=== PATIENT | female | born 1940 | race Caucasian/White ===

== ENCOUNTER 2016-05-25 19:16 | Inpatient (IN) | payer MEDICARE ==
[~2016-05-25] VITALS: Ht 157.5 cm; Wt 62.7 kg
[2016-05-25 19:32] VITALS: BP 153/80; PULSE 81; RESP 20; O2SAT 95
--- NOTE | 2016-05-25 20:13 | DRSVH ---
PROCEDURE: X-RAY CHEST ONE VIEW, PORTABLE ([id number]) INDICATIONS: 76 year-old female with cough. TECHNIQUE: One view of the chest was acquired. COMPARISON: [facility], , CHEST 2VW, 02/11/2015, 11:14. [facility], , CHEST 2VW, 06/22/2014, 12:00. [facility], , CHEST 2VW, 11/05/2010, 11:12. FINDINGS: Surgical changes and devices: None. Lungs and pleura: No pleural effusions or pneumothorax. Lungs are clear. Mediastinum: Mediastinal contours appear normal. Central pulmonary arteries appear prominent in siz e. Heart size is normal. There is aortic atherosclerosis. Bones and chest wall: No suspicious bony lesions. Overlying soft tissues appear unremarkable. IMPRESSION: No acute cardiopulmonary disease. Prominent central pulmonary arteries would be consisten t with pulmonary arterial hypertension. Dictated by: Cruz Cool M.D. on 05/25/2016 at 20:11 Approved by: Cruz Cool M.D. on 05/25/2016 at 20:11
[2016-05-25 20:43] LABS: BASOPHILS % (AUTO) 0.6 % (0-3); EOSINOPHILS % (AUTO) 1.9 % (0-5); MONOCYTES % (AUTO) 9.7 % (4-12); Mean Corpuscular Hemoglobin 31.1 pg (27.0-35.0); Mean Corpuscular Volume 101.7 fL (81-100); NEUTROPHILS % (AUTO) 57.6 % (40-74); Platelet Count 231 bil/L (150-400)
[2016-05-25 21:37] LABS: TROPONIN T 0.01 ug/L (0.0-0.011)
--- NOTE | 2016-05-25 21:50 | ED.REPORT ---
HPI-URI / Cough / Cold Date of Service May 25, 2016 ED Provider: Thaddeus Khanna MD A 76 year old female with a history of COPD, smoking, hypercholesterolemia, and hypertension is brought to the ED via EMS due to decreased level of consciousness. Per pt's daughter, the pt has not been acting normally today. She has been making little sense when she speaks and is exceedingly fatigued. The pt has also not been drinking or urinating today. There is also concern about the pt's respiratory function, though this concern is not as acute. The daughter saw the pt tripoding when she visited today, though the pt claimed that this was to relieve back pain. The pt should be on inhalers but has not been taking them regularly. She is on 2 L of oxygen at home. However there is not a significant change in her respiratory baseline. Nursing Notes Stated Complaint: WEAKNESS AND COUGH Chief Complaint: Respiratory Complaints Nursing Notes Reviewed: Yes Allergies: Coded Allergies: No Known Allergies (Unverified , 05/25/16) General Time Seen by MD: 21:45 Chief Complaint Other (Changed LOC) Hx Obtained From: Daughter, EMS Arrived By: Ambulance, Walk-in Onset Occurred: 9 - 12 hours ago Symptom Duration: Since onset Recent Healthcare: Recent doctor visit, Recent hospitalization Similar Sx Previous: No Past Medical History Past Medical History COPD on 2lNC Hypercholesterolemia PFTs at [place] 10/2015 4.3 cm AAA, fairly stable Reports: COPD, Hypertension Past Surgical History Spinal fusion 20 years ago Knee surgery Smoking History Current Every Day Smoker (since age 20) Social History Alcohol Use: Denies alcohol use Drug Use: Denies drug use Ambulatory Status Independent Review of Systems Review of Systems Note: decreased urination and fluid intake Constitutional: Reports: Fatigue, Denies: Chills, Fever Respiratory: Reports: Shortness of breath GI: Denies: Abdominal pain, Nausea, Vomiting Skin: Denies Rash Neurologic: Reports: Confusion Complete sys rev & neg: except as marked. Physical Exam Initial Vital Signs Vital Signs (First) Date Time Temp Pulse Resp B/P Pulse Ox O2 Delivery O2 Flow Rate FiO2 05/25/16 19:32 37.1 81 20 153/80 95 Room Air Initial VS: Reviewed General/Constitutional: Awake somnolent but opens eyes responds with one word answers then goes back to sleep globally weak but moves all extremities ENT: Atraumatic, Airway patent, Mucous membranes moist Respiratory / Chest: Atraumatic, Breath sounds = bilat, No respiratory distress tachypneic but not dyspneic scattered wheezes and rhonchi throughout Head / Eyes: Atraumatic, Normocephalic, PERRL, EOMI Neck: Atraumatic, Supple, Full range of motion Cardiovascular: Heart rate NL, Regular rhythm, Heart sounds NL Abdomen: Atraumatic, Soft, Non-tender Skin: Atraumatic, Color NL, No rash, Warm, Dry Neurologic: Oriented X3, Speech NL, No motor deficits, No sensory deficits Back: Atraumatic, Full range of motion Upper Extremity / MS: Atraumatic, Full range of motion Lower Extremity / Pelvis / MS: Atraumatic, Full range of motion, No edema Psychiatric: Mood NL Interpretation & Diagnostics Lab Results Interpretation Result Diagram: 05/25/16203405/25/16 2100 Test 05/25/16 20:35 05/25/16 21:00 05/25/16 22:30 White Blood Count 6.7th/mm3 (3.8-10.1) Red Blood Count 4.08mil/mm3 (3.90-5.20) Hemoglobin 12.7g/dL (12.0-15.6) Hematocrit 41.5% (35.0-46.0) Mean Corpuscular Volume 101.7fL (81-100) Mean Corpuscular Hemoglobin 31.1pg (27.0-35.0) Mean Corpuscular Hemoglobin Concent 30.6% (32.0-37.0) Red Cell Distribution Width 14.1% (12.3-15.4) Platelet Count 231bil/L (150-400) Neutrophils (%) (Auto) 57.6% (40-74) Lymphocytes (%) (Auto) 30.1% (14-46) Monocytes (%) (Auto) 9.7% (4-12) Eosinophils (%) (Auto) 1.9% (0-5) Basophils (%) (Auto) 0.6% (0-3) Sodium Level 138mEq/L (134-144) Potassium Level 4.7mEq/L (3.5-5.2) Chloride Level 93mEq/L (97-108) Carbon Dioxide Level 36mmol/L (18-29) Blood Urea Nitrogen 13mg/dL (8-27) Creatinine 0.42mg/dL (0.57-1.00) Estimat Glomerular Filtration Rate 210mL/min (>59) Glucose Level 84mg/dL (60-99) Calcium Level 9.7mg/dL (8.5-10.1) Total Bilirubin 0.2mg/dL (0.0-1.2) Aspartate Amino Transf (AST/SGOT) 14U/L (0-50) Alanine Aminotransferase (ALT/SGPT) 8U/L (0-32) Alkaline Phosphatase 56U/L (25-165) Troponin T 0.010ug/L (0.0-0.011) Pro-B-Type Natriuretic Peptide 178.8pg/mL (0-738) Total Protein 7.0g/dL (6.4-8.4) Albumin 3.0g/dL (3.4-5.0) Hold Judge Top Tube Received (Received) Urine Color Yellow (YELLOW) Urine Appearance Clear (CLEAR,HAZY) Urine pH 6.0 (5.0-8.0) Urine Specific [place] 1.025 (1.003-1.035) Urine Protein Negativemg/dL (NEG,TRACE) Urine Glucose (UA) Negativemg/dL (NEGATIVE) Urine Ketones 15mg/dL (NEGATIVE) Urine Occult Blood Negative (NEGATIVE) Urine Nitrite Negative (NEGATIVE) Urine Bilirubin Negative (NEGATIVE) Urine Urobilinogen Normalmg/dL (NORMAL) Urine Leukocyte Esterase Negative (NEGATIVE) Urine RBC 0-2/hpf (0-2) Urine WBC 0-5/hpf (0-5) Urine Epithelial Cells Occasional/hpf (NONE-MOD) Urine Crystals None seen (NONE SEEN) Urine Bacteria None/hpf (NONE-FEW) Urine Hyaline Casts None/lpf (NONE) Urine Granular Casts None seen (NONE SEEN) Urine Waxy Casts None seen (NONE SEEN) Urine Red Blood Cell Casts None seen (NONE SEEN) Urine White Blood Cell Casts None seen (NONE SEEN) Urine Mucus None seen (None Seen) Urine Trichomonas None seen (NONE SEEN) Urine Yeast None (NONE SEEN) Urine Culture Reflexed Not indicated Lab Results Interpretation: CBC Normal CMP elevated CO2 Glucose normal ABG reveals severe hypercapnia, acute on chronic ECG Interpretation ECG Interpretation: normal sinus rhythm with a rate of 93 no abnormalities Time: 19:50 Interpreted by: ED physician X-Ray Chest Interpretation Chest Xray Interpretation: IMPRESSION: No acute cardiopulmonary disease. Prominent central pulmonary arteries would be consistent with pulmonary arterial hypertension. Dictated by: Cruz Cool M.D. on 05/25/2016 at 20:11 Approved by: Cruz Cool M.D. on 05/25/2016 at 20:11 Interpretation / Wet Read by: Interpret - Radiologist Re-Eval/Medical Decision Med Decision/Clinical Course This is a 76-year-old female chronic COPD continues to smoke and according to family is only marginally compliant with medications in the COPD regimen is brought with a chief complaint of altered mental status. Chart proximal but shortness of breath, they reports is a little bit more cough than baseline-they really think it is more that the patient seemed in appropriately drowsy, and more difficult to arouse at times reason that they brought her in. The patient is not on any sedating medicines, does not use drugs or drink alcohol according to family. There has been no trauma. No fevers. No prior history of similar symptoms. On exam she is mildly tachypneic, but not severely dyspneic, she has scattered wheezes and rhonchi throughout. She is satting mid 90s on oxygen just under 2 L that she says she is on normally. This was then turned down the titrated to a sat of 8099% given she is drowsy, she will wake up the stimulus, interactive or a few seconds and then go back-and I am very suspicious about hypercapnia. Blood gas confirmed CO2 of 80, and the patient was placed on BiPAP support with improvement. Family is clear that the patient would not wish to be intubated, and will but limited interventions at the BiPAP be desired. An x-ray demonstrated no colette infiltrate. Blood work revealed no leukocytosis. Flu swab was negative. Overt pneumonia is not clearly evident. He is also worried about a urinary tract infection, but UA is negative. Patient's received albuterol, Atrovent, steroids, magnesium. She is being admitted for continued management on BiPAP support. Given the absence of infiltrate, leukocytosis, fever, I am defering abx to hospitalist. Source of Hx: Old records Re-Evaluation/Progress : Time of Eval: 23:28 Patient Status: Condition improved Re-Evaluation/Progress Note: Pt rechecked, who is resting on BiPAP and doing slightly better. Pt's daughter is informed of lab results and need for admission. The daughter understands and agrees with the plan. All questions are addressed at this time. Consultation : Referral / Consult Name: Richelle Gupta MD Consulted With: Hospitalist Call Returned at: 23:04 Compotype Operator: Agrees with eval, Agrees with plan, Accepts admit Note: Spoke to Dr. Gupta, hospitalist, regarding pt's case. Dr. Gupta agrees with the evaluation and agrees to admit the pt. Counseled Regarding: Diagnosis, Lab results, Need for admission Discharge & Departure Impression: Primary Impression: Hypercapnic respiratory failure Chronicity: acute on chronic Qualified Code: J96.22 - Acute and chronic respiratory failure with hypercapnia Additional Impression: COPD with acute exacerbation Disposition: ADMITTED TO HOSPITAL Discharge Condition All VS Reviewed: Yes Condition: Stable Referrals: Felix Knott MD (PCP) Crit Care Except Billable Proc Time Spent: 30-74 minutes Services Performed: Patient management by me, Time spent at bedside, Reviewing test results, Reviewing imaging, Discussing patient care Scribe Attestation Portions of this note were transcribed by Mahin Mcallister. I, Dr. Khanna personally performed the history, physical exam and medical decision-making; I reviewed and confirmed the accuracy of the information in the transcribed note. Signed by: Linda Marks, 05/25/2016, 23:35 copies to: Felix Knott MD, Matthew F MD May 25, 2016 21:50 MAHIN MCALLISTER May 25, 2016 22:27
--- NOTE | 2016-05-25 22:43 | ABG ---
DateTimeAnalyzed 22:36:00 -_ pH ____7.324 - 7.350 7.450 pCO2 ___78.5__ -mmHg 35.0 45.0 pO2 ___57.9__ -mmHg 69.0 116 HCO3- ___39.6__ -mmol/L 22.0 26.0 ABE ___10.9__ -mmol/L -2.0 2.0 tHb ___12.2__ -g/dL O2Hb ___85.1__ -% COHb ____4.0__ -% MetHb ____0.9__ -% sO2 ___89.5__ -% FIO2 ___28.0__ -% Drawn By MM - Date/Time Notified____ 22:42:00 -_ Liter_Flow ____2.0__ -L/min Oxygen Device 1 __CANNULA - Notified By MM - Notified Whom DR BOB - B 762 -mmHg tO2 ___14.6__ -Vol% Pablo test _Positive -
[2016-05-25 23:07] LABS: APPEARANCE,URINE CLEAR (CLEAR,HAZY); COLOR,URINE YELLOW (YELLOW); OCCULT BLOOD,URINE NEGATIVE (NEGATIVE); UROBILINOGEN,URINE NORMAL (NORMAL)
[2016-05-25] MEDS ORDERED: 0.9% Sodium Chloride 1,000 ML IV ONE ×2 (23:10→23:15)
[2016-05-25] MEDS ORDERED: MethylprednisoLONE Sodium Succinate 62.5 mg/mL 2 mL Inj IVPUSH ONE (23:30)
[2016-05-25] MEDS ORDERED: Albuterol 2.5 mg/3 mL Inhalation Solution NEB ONE (23:30)
[2016-05-25] MEDS ORDERED: Ipratropium 0.02% 0.5 mg/2.5 mL Inhalation Solution NEB ONE (23:30)
[2016-05-25] MEDS ORDERED: Magnesium Sulf 2 Gm/50mL Water 2 GM in IV Premix 1 EACH IV ONE (23:30)
[2016-05-25] MEDS ORDERED: Ondansetron 2 mg/mL 2 mL Inj IVPUSH PRN (23:40)
[2016-05-25] MEDS ORDERED: Alum-Mag Hydrox-Simeth 30 mL Suspension PO PRN (23:40)
[2016-05-26] VITALS (13 sets, daily range): BP systolic 104–143; BP diastolic 63–87; PULSE 75–106; RESP 20–23; O2SAT 88–94
--- NOTE | 2016-05-26 01:41 | NUR ---
Admit To floor from ED at 0050 accompanied by son. Unable to answer questions for admit, so son helped with those, but was able to state her height as 5'2, and her name. Shakes head "no" when asked about pain. Skin very dry and flaky. LE's with some pitting edema. RT here to give neb and measurement superintendent bipap. Sats 88% on bipap. Goal is 88-92% per RT. Plan is to take her to CT as soon as they are ready. Per son, declines flu shot. Personal alarm on for safety when family not in room.
--- NOTE | 2016-05-26 02:37 | ABG ---
DateTimeAnalyzed 02:33:00 -_ pH ____7.231 - 7.350 7.450 pCO2 ___87.8__ -mmHg 35.0 45.0 pO2 ___89.2__ -mmHg 69.0 116 HCO3- ___35.6__ -mmol/L 22.0 26.0 ABE ____5.6__ -mmol/L -2.0 2.0 tHb ___12.0__ -g/dL O2Hb ___91.8__ -% COHb ____3.5__ -% MetHb ____0.9__ -% sO2 ___96.0__ -% FIO2 ___50.0__ -% PEEP ____6.0__ -cmH2O Vt __250.0__ -L Drawn By af - Date/Time Notified____ 02:37:00 -_ Spontaneous_RR ___18.0__ -b/min Oxygen Device 1 ____BIPAP - Notified By af - Notified Whom ___amy rn - B 764 -mmHg tO2 ___15.6__ -Vol% Pablo test _Positive -
--- NOTE | 2016-05-26 02:46 | NUR ---
CT/respiratory status Unable to take patient to CT as she started to desat on bipap. RT in to adjust settings. Repositioned to help with hypoventilation. Repeat ABG obtained. Results called to . No further orders at this time. RT to repeat ABG at 0500.
[2016-05-26] MEDS ORDERED: RANI150C4 PO (02:51)
[2016-05-26] MEDS ORDERED: LISI10TA PO (02:51)
[2016-05-26] MEDS ORDERED: ATOR20TA PO (02:51)
[2016-05-26] MEDS: 0.9% Sodium Chloride 1,000 ML IV SCH ×3 (03:07→23:09)
--- NOTE | 2016-05-26 03:11 | PCM.HPMED ---
Subjective Date of Service May 26, 2016 Primary Provider: Admitting Physician: Richelle Gupta MD Primary Care Physician: Felix Knott MD Attending Physician: Richelle Gupta MD Admit Status: From the Emergency Department Chief Complaint: Altered mental status History of Present Illness: Mrs. Ureña is a 76 year-old female with a history of COPD who continues to smoke (since she was a teenager), hypercholesterolemia, and hypertension who was brought to the ED via EMS due to altered level of consciousness. Per pt's son (that she lives with) she got up at 8:30 a.m. and got a cup of coffee that he made for her then she almost immediately feel asleep in a chair. At about 1: 00 p.m., ([id number]?) checked on her and she was in the same chair, tripoding (leaning forward) and sleeping. It appears that she had not gotten up from her chair, not urinated, not had a cigarette (which is very unusual for her ) since she was last seen at 8:30 a.m. Vitals were stable including BP of 113/ 72. When asked if she was okay, she nodded yes then fell back asleep. At one point she said people were in the room who obviously were not there. She had no facial droop and her celery tier was strong and she could lift her head up. At one point she was "babbling" -- they could understand her words but they made no sense. Called EMS and patient walked from chair to gurney without protest (also unusual). Normally, patient is not very compliant with her inhalers. She has not been ill recently and no fevers, trauma, prior similar symptoms. She uses no opiates and uses oxygen at home at 2 liters. Daughter states that she seems to be breathing at baseline currently. Per son, she has an aortic aneurysm as well that she is supposed to follow up on every 6 months but she has continually canceled appointment and he is worried that has something to do with her presentation. In the ED, she was mildly tachypneic, and had scattered wheezes and rhonchi throughout. She was satting mid 90s on 2 L O2. She was drowsy, will wake with stimulus, interactive or a few seconds and then go back to sleep. Blood gas confirmed CO2 of 80, and the patient was placed on BiPAP with mental improvement per family. Family is clear that the patient would not wish to be intubated, and will but limited interventions at the BiPAP be desired. Chest x-ray: no colette infiltrate. Labs: no leukocytosis. Flu swab was negative. Overt pneumonia not clearly evident. UA was negative. Blood glucose normal. Patient received albuterol, Atrovent, steroids, magnesium in the ED. She was admitted for continued management on BiPAP support. Review of Systems: Unable to obtain given patient's mental status. Allergies Coded Allergies: No Known Allergies (Unverified , 05/25/16) Home Medications Atorvastatin 20mg QHS lisinopril 10mg daily ranitidine 150mg PO BID Unknown inhalers Home oxygen PMH COPD on 2lNC Hypercholesterolemia PFTs at [place] 10/2015 4.3 cm AAA, fairly stable Reports: COPD, Hypertension Surgical History Spinal fusion 20 years ago Knee surgery Family History Unknown. Patient unable to speak because of mental status. Social History Hx Alcohol Use: No Hx Substance Use: No Smoking Status: Current Every Day Smoker (since age 20) Living Arrangement: with Family (with son) Exam Vital Signs Vital Sign - Last Date Time Temp Pulse Resp B/P Pulse Ox O2 Delivery O2 Flow Rate FiO2 05/26/16 01:10 84 21 91 30 05/26/16 00:50 36.6 122/72 BiPAP Intake and Output 05/25/16 05/25/16 05/26/16 Cumulative From/Thru 15:00 23:00 07:00 05/25/16 19:32 - 05/26/16 00:50 Intake Total 1050 ml 1050 ml Balance 1050 ml 1050 ml Intake IV Total 1050 ml 1050 ml Exam General/Constitutional: somnolent but opens eyes when stimulated. responds with one word answers then goes back to sleep ENT: Atraumatic, Airway patent, Mucous membranes moist Respiratory / Chest: Atraumatic, Breath sounds = bilat, scattered wheezes and rhonchi throughout, patient on bipap when examined Head / Eyes: Atraumatic, Normocephalic, sclera anicteric Neck: Supple Cardiovascular: Difficult to assess with bipap and lung sounds. However, RRR and no murmurs appreciated Abdomen: Atraumatic, Soft, Non-tender Skin: Atraumatic, Color NL, No rash, Warm, Dry Neurologic: Upon admission, patient was too sleepy to follow directions Lab and Diagnostics Labs Normal glucose Result Diagram: 05/25/16203405/25/16 2100 X-Rays, CTs and MRIs Date of Service: 05/25/161941 PROCEDURE: X-RAY CHEST ONE VIEW, PORTABLE INDICATIONS: 76 year-old female with cough. TECHNIQUE: One view of the chest was acquired. COMPARISON: [facility], , CHEST 2VW, 02/11/2015, 11:14. [facility], , CHEST 2VW, 06/22/2014, 12:00. [facility], , CHEST 2VW, 11/05/2010, 11:12. FINDINGS: Surgical changes and devices: None. Lungs and pleura: No pleural effusions or pneumothorax. Lungs are clear. Mediastinum: Mediastinal contours appear normal. Central pulmonary arteries appear prominent in size. Heart size is normal. There is aortic atherosclerosis. Bones and chest wall: No suspicious bony lesions. Overlying soft tissues appear unremarkable. IMPRESSION: No acute cardiopulmonary disease. Prominent central pulmonary arteries would be consistent with pulmonary arterial hypertension. Dictated by: Cruz Cool M.D. on 05/25/2016 at 20:11 . 12-lead ECG ECG Interpretation: normal sinus rhythm with a rate of 93 no abnormalities Time: 19:50 Interpreted by: ED physician Reviewed, Resident Olga Additional Diagnostics: SECOND ABG - DateTimeAnalyzed 02:33:00 -_ pH ____7.231 - 7.350 7.450 pCO2 ___87.8__ -mmHg 35.0 45.0 pO2 ___89.2__ -mmHg 69.0 116 HCO3- ___35.6__ -mmol/L 22.0 26.0 ABE ____5.6__ -mmol/L -2.0 2.0 tHb ___12.0__ -g/dL O2Hb ___91.8__ -% COHb ____3.5__ -% MetHb ____0.9__ -% sO2 ___96.0__ -% FIO2 ___50.0__ -% PEEP ____6.0__ -cmH2O Vt __250.0__ -L Drawn By af - Date/Time Notified____ 0 2:37:00 -_ Spontaneous_RR ___18.0__ -b/min Oxygen Device 1 ____BIPAP - Notified By af - Notified Whom ___amy rn - B 764 -mmHg tO2 ___15.6__ -Vol% Pablo test _Positive - FIRST ABG DateTimeAnalyzed 22:36:00 -_ pH ____7.324 - 7.350 7.450 pCO2 ___78.5__ -mmHg 35.0 45.0 pO2 ___57.9__ -mmHg 69.0 116 HCO3- ___39.6__ -mmol/L 22.0 26.0 ABE ___10.9__ -mmol/L -2.0 2.0 tHb ___12.2__ -g/dL O2Hb ___85.1__ -% COHb ____4.0__ -% MetHb ____0.9__ -% sO2 ___89.5__ -% FIO2 ___28.0__ -% Drawn By MM - Date/Time Notified____ 22:42:00 -_ Liter_Flow ____2.0__ -L/min Oxygen Device 1 __CANNULA - Notified By MM - Notified Whom DR BOB - B 762 -mmHg tO2 ___14.6__ -Vol% Pablo test _Positive - Assessment & Plan Mrs. Ureña is a 76 year-old female with a history of COPD who continues to smoke (since she was a teenager), hypercholesterolemia, and hypertension who was brought to the ED via EMS due to altered level of consciousness. 1. Altered mental status, present on admission, acute - ABG showed hypercapnia of 80. Repeat at 02:30 showed hypercapnia of 89. - Ordered CT per stroke protocol, but patient not stable enough to be off of CPAP at this time. Unlikely stroke, son said celery tier strength was fine and she was able to walk from chair to gurney. - Currently patient on bipap with frequent adjustment - Checking B12, folate, RPR, urine tox screen, blood alcohol, ammonia - Giving flumazenil and naloxone because tox screens pending (although do not suspect substances) - Patient is DNI - DuoNebs ordered - Solu Medrol given in ED, will continue 2. Hypercapnia, present on admission, acute - See #1 above 3. COPD, present on admission, acute on chronic - Patient uses 2 liters of oxygen at home - Now requiring bipap - See #1 #2 above 3. Hypertension, present on admission, chronic - Currently controlled - Will hold for now - consider permissive hypertension for possible stroke 4. Dyslipidemia, present on admission, chronic - Hold statin for now. 5. AAA, present on admission, chronic - Assume stable 6. [id number]-history, present on admission, ongoing - Nicotine patch - Acetaminophen as needed for mild pain/fever/headache - Bowel regimen as needed - Antiemetic as needed Patient admitted under inpatient status with expected length of stay > 2 midnights for severity of present symptoms, complexities of treatment plan and risk for adverse events CODE STATUS: DNR/DNI confirmed with son and daughter VTE Prophylaxis: Sub-Q Heparin (Unfractionated) Resuscitation Status: DNR/DNI:Do Not Resuscitate/Intubate Attending Statement Pt seen and examined by myself and agree with above plan. Flori Espinoza DO May 26, 2016 03:11 Richelle Gupta MD May 29, 2016 18:57
[2016-05-26] MEDS ORDERED: Flumazenil 0.1 mg/mL 5 mL Inj IV ONE (03:25)
--- NOTE | 2016-05-26 04:01 | NUR ---
Meds Narcan and Romazicon given without any noticeable effect.
[2016-05-26] MEDS: Albuterol-Ipratropium 3 mL Inhalation Solution NEB SCH ×4 (04:23→21:00)
--- NOTE | 2016-05-26 04:36 | ABG ---
DateTimeAnalyzed 04:31:00 -_ pH ____7.272 - 7.350 7.450 pCO2 ___76.2__ -mmHg 35.0 45.0 pO2 ___60.9__ -mmHg 69.0 116 HCO3- ___34.0__ -mmol/L 22.0 26.0 ABE ____5.4__ -mmol/L -2.0 2.0 tHb ___11.7__ -g/dL O2Hb ___85.7__ -% COHb ____3.3__ -% MetHb ____1.0__ -% sO2 ___89.5__ -% FIO2 ___40.0__ -% CPAP ___25.0__ -cmH2O PEEP ___10.0__ -cmH2O Set_RR ___20.0__ -b/min Drawn By af - Date/Time Notified____ 04:35:00 -_ Spontaneous_RR ___22.0__ -b/min Oxygen Device 1 ____BIPAP - Notified By AF - Notified Whom ___Amy RN - B 764 -mmHg tO2 ___14.1__ -Vol% Pablo test _Positive -
[2016-05-26] MEDS ORDERED: MethylprednisoLONE Sodium Succinate 40 mg/mL Inj IVPUSH SCH ×2 (08:30)
[2016-05-26] MEDS: Heparin 5,000 Unit/mL Inj SUBQ SCH ×2 (09:07→16:19)
--- NOTE | 2016-05-26 10:09 | DRSVH ---
PROCEDURE: CT BRAIN WITHOUT CONTRAST ([id number]) INDICATIONS: altered mental status TECHNIQUE: Noncontrast 4.5 mm thick angled axial sections acquired from the foramen magnum to the vertex, with c oronal reformats. COMPARISON: None. FINDINGS: Image quality: Excellent. CSF spaces: Basal cisterns are patent. No extra-axial fluid collections. The ventricles are symmet marielos in size and shape. Brain: No intracranial bleeds or masses. There is cerebral volume loss for age, with resultant vent ricular and sulcal prominence. There are periventricular and deep white matter chronic small vessel ischemic changes. There is intracranial internal carotid artery atherosclerosis. Skull and face: Calvarium and visualized facial bones appear intact, without suspicious lesions. Sinuses: Visualized sinuses and mastoids are clear. IMPRESSION: 1. No acute intracranial findings. 2. Mild findings likely associated with microvascular ischemic changes. Dictated by: Xiomy Strickland M.D. on 05/26/2016 at 10:07 Approved by: Xiomy Strickland M.D. on 05/26/2016 at 10:07
[2016-05-26] MEDS ORDERED: predniSONE 20 mg Tablet PO ONE (12:00)
[2016-05-26] MEDS ORDERED: Albuterol 2.5 mg/3 mL Inhalation Solution NEB PRN (12:00)
--- NOTE | 2016-05-26 14:45 | NUR ---
Social Work Note: Initial Assessment Data& Assessment: EMR reviewed. SW met with pt and pt son at bedside to discuss discharge planning, SW role explained. Shanel Ureña is a 76 year old female admitted on 05/25/2016 for hypercapnic respiratory failure. Pt has Medicare and AARP supplement. Pt lives in [place] with her son who also helps with caregiving. Pt is independent with all ADL's except she does receive assistance with food prep, chores and medications. Pt has a wheelchair, can and 4WW at home but does not use them. Pt son transports her to appointments. Pt continues to see Felix Knott MD for primary care. Pt denies any LTC insurance or VA benefits. Pt denies any HH or SNF hx. Pt and pt family provided with DPOA paperwork. Pt and pt family deny any needs at this time. SW to continue to follow should needs arise. Plan: Anticipated discharge home via POV when medically ready. SW to continue to follow for MD and PT recommendations. Pt and pt family deny any needs at this time. SW to continue to follow should needs arise. LACEY Pena Addendum: 05/26/16 at 1507 by AGUSTO KLEIN Amended: Links added.
--- NOTE | 2016-05-26 16:10 | NUR ---
Respiratory/Mentation Patients blood gases improved since last night. BiPap removed and patient maintaing SPO2 in low 90s on 4L NC. No s/sx of respiratory distress. Patient A&O x3 and VSS. Patient resting in bed with family at bedside and call light within reach.
--- NOTE | 2016-05-26 16:15 | NUR ---
Evaluation completed. Please go to "Notes" then click on "Assessments and Notes" (bottom left corner of screen). Then select appropriate discipline tab on top of screen.
--- NOTE | 2016-05-26 17:00 | DRSVH ---
[facility] [address] [place] [address] Echocardiogram Report Name: CHANTAL LEDESMA JStudy Date: 05/26/2016 Height: 62 in Hospital Exam Location: [facility] Weight: 131 lb Gender: Female BSA: 1.6 m2 : 1940 Age: 76 yrs BP: 111/65 mmHg Reason For Study: COPD Ordering Physician: Performed By: Janet Kerr Referring Physician: Dr. Felix Knott Interpretation Summary The left ventricle is normal in size. The ejection fraction is estimated to be 65-70%. The right ventricle is normal in size and function. There is no hemodynamically significant valvular aortic stenosis. The ascending aorta is mildly enlarged. The IVC is of normal diameter and collapses less than 50% with a sniff. This suggests a right atrial pressure of 8 mm Hg. Procedure: A two-dimensional transthoracic echocardiogram with color flow and Doppler was performed. The study quality was technically adequate. There is no prior echocardiogram noted for this patient. The patient was in sinus tachycardia with heart rates between 98-108 bpm during the exam. Left Ventricle: The left ventricle is normal in size. Proximal septal thickening is noted. There is no echo evidence for significant left ventricular outflow tract obstruction. The ejection fraction is estimated to be 65-70%. There are no focal wall motion abnormalities. Spectral Doppler of the mitral valve is reversed, with an E/A wave ratio < 1.0. Right Ventricle: The right ventricle is normal in size and function. Atria: The left atrial size is normal. The right atrium is mildly dilated. The interatrial septum is intact with no evidence for an atrial septal defect. Mitral Valve: There is mild mitral annular calcification. The mitral valve leaflets are slightly calcified. There is trace mitral regurgitation. Aortic Valve: The aortic valve is trileaflet. There is discrete nodular thickening of the left coronary cusp. Leaflet mobility is mildly reduced. The aortic valve is mildly calcified. There is no hemodynamically significant valvular aortic stenosis. There is trace aortic regurgitation. Tricuspid Valve: The tricuspid valve is normal. Pulmonary artery pressures cannot be estimated because of the lack of a measurable TR jet velocity. There is trace tricuspid regurgitation. Pulmonic Valve: The pulmonic valve is not well visualized. There is trace pulmonic regurgitation. Great Vessels: The aortic root is normal size. The ascending aorta is mildly enlarged. The aortic arch could not be visualized. The pulmonary is not well visualized. The IVC is of normal diameter and collapses less than 50% with a sniff. This suggests a right atrial pressure of 8 mm Hg. Pericardium/ Pleura There is no pericardial effusion. There is no pleural effusion. MMode/2D Measurements & Calculations LVIDd: 4.2 cm RA long axis LVOT diam LVIDs: 2.7 cm LA A2 area: 15.4 cm FS: 36.7 % LA A4 area: 19.1 cm RA area AoV Opening EPSS: 0.19 cm LA length (vol): 5.1 cm IVSd: 0.93 cm LA vol: 49.0 ml : 21.1 cm Ao root diam LVPWd: 0.81 cm LA vol index RA vol : 65.2 ml asc Aorta RA Diam: 3.8 cm IVC diam: 2.1 cm : 40.9 mm2 LV belcher. diameter/BSA LV sys. diameter/BSA TAPSE: 2.6 cm (cm/m^2): 2.7 (cm/m^2): 1.7 Doppler Measurements & Calculations Ao V2 max MV E max esvin MV E/A: 0.86 PA V2 max : 179.4 cm/sec : 82.0 cm/sec Med Peak E' Esvin : 132.2 cm/sec Ao max P.9 mmHg MV A max esvin PA mean PG Ao mean P.3 mmHg : 95.2 cm/sec E/E' med: 6.7 : 3.3 mmHg LVOT Max Esvin Lat Peak E' Esvin : 131.2 cm/sec DIANDRA(I,D): 2.2 cm E/E' lat: 6.5 sev ratio: 0.58 MV A dur: 0.12 sec MV dec time: 0.13 sec Ao V2 mean LV V1 max PG PA V2 mean : 128.5 cm/sec : 83.7 cm/sec Ao V2 VTI: 38.0 cmLV V1 VTI: 22.2 cm PA pr(Accel) : 59.0 mmHg DIANDRA(V,D): 2.8 cm2 DIANDRA indexed to BSA (cm^2/m^2): 1.4 Reading Physician:LIZETTE
--- NOTE | 2016-05-26 18:48 | PCM.PNMED ---
Subjective Date of Service May 26, 2016 Subjective Shanel Ureña is a 76 year-old female with a history of COPD on 2 liters of home oxygen, hypertension, hyperlipidemia, and 4.3cm AAA reportedly stable who presented to the ED via EMS for altered level of consciousness. Admitted for acute on chronic respiratory failure and possible COPD exacerbation. Admitted to PCU overnight, received duoneb and started on bipap with goal sats of 88-92%. Today, patient's mentation improved but per her daughter not at baseline. Patient appears lethargic but is easily aroused and communicating appropriately. She denies chest pain, fever, chills, congestion, worsening cough or known sick contacts. She has never been intubated or hospitalized for her COPD and daughter (a nurse at [employer]) confirms patient is DNR/DNI. Exam Vital Signs Vital Sign - Last Date Time Temp Pulse Resp B/P Pulse Ox O2 Delivery O2 Flow Rate FiO2 05/26/16 10:11 Supplement Oxygen CPAP/BIPAP 05/26/16 09:53 103 22 91 3.00 05/26/16 07:28 36.5 111/65 40 Intake and Output 05/25/16 05/25/16 05/26/16 Cumulative From/Thru 15:00 23:00 07:00 05/25/16 19:32 - 05/26/16 05:49 Intake Total 3335 ml 3335 ml Output Total 600 ml 600 ml Balance 2735 ml 2735 ml Intake IV Total 3335 ml 3335 ml Output Urine Total 600 ml 600 ml Exam General: Chronically ill-appearing, elderly female in mild respiratory distress , bipap mask in place. Lethargic but arouses easily and is appropriately interactive HEENT: Normocephalic, atraumatic. External ears without defect. PERRLA, anicteric sclerae, moist conjunctivae, and no lid lag. Mucosa moist. Neck: Supple, non-tender, no lymphadenopathy or thyromegaly. +JVD. Cardiovascular: Regular rate and rhythm with no murmurs, rubs, or gallops appreciated Pulmonary: Symmetric chest rise with equal air entry bilaterally, lungs diffusely coarse with expiratory wheezing and rhonchi throughout. No use of accessory muscles. Abdomen: Bowel tones present. Soft, nontender, nondistended. No hepatosplenomegaly or masses appreciated. Extremities: Trace lower extremity edema, no cyanosis or lymphadenopathy appreciated. Clubbing of fingers bilaterally. Skin: Normal temperature, decreased turgor; no rash, ulcers, or subcutaneous nodules appreciated. Neurological: Cranial nerves grossly intact. No focal neurological deficit. No known gait impairment. Psychiatric: Normal mood and affect. Alert and oriented to person, place, and time IVs and Medications Medications Reviewed: Medications were reviewed in detail Lab and Diagnostics Procalcitonin < 0.05, Thyroid Stimulating Hormone (TSH) 1.460, Salicylates Level < 3.0, Alcohol, Quantitative < 10 Urine Opiates Screen Negative, Urine Methadone Screen Negative, Urine Barbiturates Screen Negative, Urine Amphetamines Screen Negative, Urine Benzodiazepines Screen Negative, Urine Cocaine Metabolite Screen Negative, Urine Cannabinoids Screen Negative Ammonia 38 Result Diagram: 05/25/16203405/25/16 2100 X-Rays, CTs and MRIs X-RAY CHEST ONE VIEW, PORTABLE (05/25/16) IMPRESSION: No acute cardiopulmonary disease. Prominent central pulmonary arteries would be consistent with pulmonary arterial hypertension. Dictated by: Cruz Cool M.D. on 05/25/2016 at 20:11 CT BRAIN WITHOUT CONTRAST (05/26/16) IMPRESSION: 1. No acute intracranial findings. 2. Mild findings likely associated with microvascular ischemic changes. Dictated and approved by: Xiomy Strickland M.D. on 05/26/2016 at 10:07 12-lead ECG ECG Interpretation: normal sinus rhythm with a rate of 93 no abnormalities Time: 19:50 Interpreted by: ED physician Reviewed, Resident Olga Additional Diagnostics SECOND ABG - DateTimeAnalyzed 02:33:00 -_ pH ____7.231 - 7.350 7.450 pCO2 ___87.8__ -mmHg 35.0 45.0 pO2 ___89.2__ -mmHg 69.0 116 HCO3- ___35.6__ -mmol/L 22.0 26.0 ABE ____5.6__ -mmol/L -2.0 2.0 tHb ___12.0__ -g/dL O2Hb ___91.8__ -% COHb ____3.5__ -% MetHb ____0.9__ -% sO2 ___96.0__ -% FIO2 ___50.0__ -% PEEP ____6.0__ -cmH2O Vt __250.0__ -L Drawn By af - Date/Time Notified____ 0 2:37:00 -_ Spontaneous_RR ___18.0__ -b/min Oxygen Device 1 ____BIPAP - Notified By af - Notified Whom ___amy rn - B 764 -mmHg tO2 ___15.6__ -Vol% Pablo test _Positive - FIRST ABG DateTimeAnalyzed 22:36:00 -_ pH ____7.324 - 7.350 7.450 pCO2 ___78.5__ -mmHg 35.0 45.0 pO2 ___57.9__ -mmHg 69.0 116 HCO3- ___39.6__ -mmol/L 22.0 26.0 ABE ___10.9__ -mmol/L -2.0 2.0 tHb ___12.2__ -g/dL O2Hb ___85.1__ -% COHb ____4.0__ -% MetHb ____0.9__ -% sO2 ___89.5__ -% FIO2 ___28.0__ -% Drawn By MM - Date/Time Notified____ 22:42:00 -_ Liter_Flow ____2.0__ -L/min Oxygen Device 1 __CANNULA - Notified By MM - Notified Whom DR BOB - B 762 -mmHg tO2 ___14.6__ -Vol% Pablo test _Positive - Assessment & Plan 76 year-old female with a history of COPD who continues to smoke (since she was a teenager), hypercholesterolemia, and hypertension who was brought to the ED via EMS due to altered level of consciousness. Hospital day #1. 1. Acute on chronic hypercapnic respiratory failure, present on admission. Active. -Pt is a current and long time smoker, oxygen dependent and questionable adherence to home inhalers. -Likely multifactorial, secondary to over oxygenation in setting of COPD, acute exacerbation of COPD or underlying occult respiratory infection. -Reportedly maintaining high oxygen sats at home, per pt's daughter who is a nurse. Pt lives with her son and been keeping sats mid-upper nineties. -Hypercapnia on ABG, pCO2 88 on bipap. FiO2 of 50%. -Continue supplemental oxygen, titrate as tolerated with goal SpO2 88-92%. -Trial off bipap today with ABG within one hour if tolerated. -Influenza rapid screen negative, will check respiratory viral PCR, sputum culture and trend procalcitonin. -Duonebs qid, while awake and Albuterol q2h prn. 2. Possible acute exacerbation of COPD, present on admission. Active. -Decline in mental status for several weeks to months. Pt notably somnolent in last few days prior to admission. -Oxygen dependent, 2L home O2. Unknown home inhalers, poor compliance per the patient's daughter. -Pt oxygen dependent with PFTs in October at [facility]. -Request outside records and PFTs. -Continue supplemental oxygen and bronchodilators, as above. -Start oral prednisone 40mg, once daily. 3. Altered mental status, unknown chronicity. present on admission. Active -Likely secondary to #1. Pt may have underlying mild dementia. -Brain CT showed no acute intracranial findings and findings consistent with microvascular ischemic changes. -B12 and folate, pending -UA no signs of infection, ammonia wnl -Urine tox screen and blood alcohol negative -Received Solu Medrol in the ED -Continue supplemental oxygen, bronchodilators and prednisone as above. 4. Hypertension, chronic. present on admission. Active. -Home medication held initially for permissive hypertension for possible stroke. -CT brain, as above. -Resume home medication, Lisinopril 10mg daily 5. Hyperlipidemia, chronic. present on admission. Active. -Resume home statin, Atorvastatin 20mg QHS 6. AAA, present on admission, chronic. Assume stable. -Request records from [facility] 7. Tobacco use disorder, present on admission. Active. -Pt reports 43-[id number]-history, continues to smoke -Nicotine patch. - Acetaminophen as needed for mild pain/fever/headache - Bowel regimen as needed - Antiemetic as needed Anticipated discharge home with family in 2-3 days pending resolution of respiratory failure. Pain Evaluation: Adequate Pain Control VTE Prophylaxis: Sub-Q Heparin (Unfractionated) Resuscitation Status: DNR/DNI:Do Not Resuscitate/Intubate Attending Statement The patient was seen and examined together with Dr. Jerry on 05-26-16 and I agree with the history, exam and plan as outlined in the note above. Martha Alexander DO May 26, 2016 10:47 Simone Burk MD May 27, 2016 15:04
[2016-05-27] VITALS (12 sets, daily range): BP systolic 107–132; BP diastolic 68–79; PULSE 76–92; RESP 16–24; O2SAT 88–93
[2016-05-27] MEDS: Heparin 5,000 Unit/mL Inj SUBQ SCH ×4 (00:09→23:26)
[2016-05-27 03:45] LABS: BASOPHILS % (AUTO) 0 % (0-3); EOSINOPHILS % (AUTO) 0 % (0-5); MONOCYTES % (AUTO) 10.6 % (4-12); Mean Corpuscular Hemoglobin 31.5 pg (27.0-35.0); Mean Corpuscular Volume 99.4 fL (81-100); NEUTROPHILS % (AUTO) 79.9 % (40-74); Platelet Count 204 bil/L (150-400)
--- NOTE | 2016-05-27 04:36 | NUR ---
Mentation/O2 Pt A&Ox3 throughout night, using call light appropriately, denied any pain. VSS O2 titrated down to 1-1.5L NC in order to maintain sats between 88-92%. Pt denied any SOB, had occasional congested sounding cough but unable to cough it out.
[2016-05-27 07:12] LABS: Vitamin B12 471 pg/mL (211-946)
[2016-05-27] MEDS: 0.9% Sodium Chloride 1,000 ML IV SCH ×2 (07:52→17:39)
[2016-05-27] MEDS: Albuterol-Ipratropium 3 mL Inhalation Solution NEB SCH ×4 (08:30→21:05)
--- NOTE | 2016-05-27 15:37 | PCM.PNMED ---
Subjective Date of Service May 27, 2016 Subjective Shanel Ureña is a 76 year-old female with a history of COPD on 2 liters of home oxygen, hypertension, hyperlipidemia, and 4.3cm AAA reportedly stable who presented to the ED via EMS for altered level of consciousness. Admitted for acute on chronic respiratory failure and possible COPD exacerbation. NO acute events overnight. Per nursing, patient alert and oriented and oxygen titrated down to 1-1.5liters nasal cannula in order to maintain sats between 88- 92%. Today, patient is resting comfortably and found visiting with family. She states that she is feeling much better and is ready to go home. She denies chest pain, fever, chills, headache, dizziness, nausea, vomiting, diarrhea or constipation. Exam Vital Signs Vital Sign - Last Date Time Temp Pulse Resp B/P Pulse Ox O2 Delivery O2 Flow Rate FiO2 05/27/16 04:19 Supplement Oxygen 05/27/16 04:09 36.6 79 24 132/79 88 1.00 05/26/16 07:28 40 Intake and Output 05/26/16 05/26/16 05/27/16 Cumulative From/Thru 15:00 23:00 07:00 05/25/16 19:32 - 05/27/16 06:39 Intake Total 1800 ml 1261 ml 6396 ml Output Total 450 ml 1050 ml Balance 1350 ml 1261 ml 5346 ml Intake Oral 620 ml 620 ml IV Total 1180 ml 1261 ml 5776 ml Output Urine Total 450 ml 1050 ml Exam General: Chronically ill-appearing, elderly female in no acute distress, nasal cannula in place. Alert and oriented. Appropriately interactive. HEENT: Normocephalic, atraumatic. External ears without defect. PERRLA, anicteric sclerae, Mucosa moist. Neck: Supple, non-tender, no lymphadenopathy or thyromegaly. +JVD. Cardiovascular: Regular rate and rhythm with no murmurs, rubs, or gallops appreciated Pulmonary: Symmetric chest rise with equal air entry bilaterally, lungs coarse with expiratory wheezing. No use of accessory muscles. Abdomen: Bowel tones present. Soft, nontender, nondistended. No hepatosplenomegaly or masses appreciated. Extremities: Trace lower extremity edema, no cyanosis or lymphadenopathy appreciated. Clubbing of fingers bilaterally. Skin: Normal temperature, decreased turgor; no rash, ulcers, or subcutaneous nodules appreciated. Neurological: Cranial nerves grossly intact. No focal neurological deficit. No known gait impairment. Psychiatric: Normal mood and affect. Alert and oriented to person, place, and time IVs and Medications Medications Reviewed: Medications were reviewed in detail Lab and Diagnostics White Blood Count 9.8, Red Blood Count 3.37, Hemoglobin 10.6, Hematocrit 33.5, Mean Corpuscular Volume 99.4, Mean Corpuscular Hemoglobin 31.5, Mean Corpuscular Hemoglobin Concent 31.6, Red Cell Distribution Width 14.1, Platelet Count 204, Neutrophils (%) (Auto) 79.9, Lymphocytes (%) (Auto) 9.4, Monocytes (% ) (Auto) 10.6, Eosinophils (%) (Auto) 0, Basophils (%) (Auto) 0 Sodium Level 137, Potassium Level 4.8, Chloride Level 98, Carbon Dioxide Level 32, Blood Urea Nitrogen 15, Creatinine 0.31, Estimat Glomerular Filtration Rate 298, Glucose Level 133, Calcium Level 7.7, Total Bilirubin 0.2, Aspartate Amino Transf (AST/SGOT) 12, Alanine Aminotransferase (ALT/SGPT) 6, Alkaline Phosphatase 43, Total Protein 5.3, Albumin 3.0 Result Diagram: 05/27/16 0300 05/27/16 0300 Microbiology Respiratory virus panel negative, sputum culture grew normal cole. X-Rays, CTs and MRIs X-RAY CHEST ONE VIEW, PORTABLE (05/25/16) IMPRESSION: No acute cardiopulmonary disease. Prominent central pulmonary arteries would be consistent with pulmonary arterial hypertension. Dictated by: Cruz Cool M.D. on 05/25/2016 at 20:11 CT BRAIN WITHOUT CONTRAST (05/26/16) IMPRESSION: 1. No acute intracranial findings. 2. Mild findings likely associated with microvascular ischemic changes. Dictated and approved by: Xiomy Strickland M.D. on 05/26/2016 at 10:07 12-lead ECG ECG Interpretation: normal sinus rhythm with a rate of 93 no abnormalities Time: 19:50 Interpreted by: ED physician Reviewed, Resident Olga Additional Diagnostics SECOND ABG - DateTimeAnalyzed 02:33:00 -_ pH ____7.231 - 7.350 7.450 pCO2 ___87.8__ -mmHg 35.0 45.0 pO2 ___89.2__ -mmHg 69.0 116 HCO3- ___35.6__ -mmol/L 22.0 26.0 ABE ____5.6__ -mmol/L -2.0 2.0 tHb ___12.0__ -g/dL O2Hb ___91.8__ -% COHb ____3.5__ -% MetHb ____0.9__ -% sO2 ___96.0__ -% FIO2 ___50.0__ -% PEEP ____6.0__ -cmH2O Vt __250.0__ -L Drawn By af - Date/Time Notified____ 0 2:37:00 -_ Spontaneous_RR ___18.0__ -b/min Oxygen Device 1 ____BIPAP - Notified By af - Notified Whom ___amy rn - B 764 -mmHg tO2 ___15.6__ -Vol% Pablo test _Positive - FIRST ABG DateTimeAnalyzed 22:36:00 -_ pH ____7.324 - 7.350 7.450 pCO2 ___78.5__ -mmHg 35.0 45.0 pO2 ___57.9__ -mmHg 69.0 116 HCO3- ___39.6__ -mmol/L 22.0 26.0 ABE ___10.9__ -mmol/L -2.0 2.0 tHb ___12.2__ -g/dL O2Hb ___85.1__ -% COHb ____4.0__ -% MetHb ____0.9__ -% sO2 ___89.5__ -% FIO2 ___28.0__ -% Drawn By MM - Date/Time Notified____ 22:42:00 -_ Liter_Flow ____2.0__ -L/min Oxygen Device 1 __CANNULA - Notified By MM - Notified Whom DR BOB - B 762 -mmHg tO2 ___14.6__ -Vol% Pablo test _Positive - Assessment & Plan 76 year-old female with a history of COPD who continues to smoke (since she was a teenager), hypercholesterolemia, and hypertension who was brought to the ED via EMS due to altered level of consciousness. Hospital day #2 1. Acute on chronic hypercapnic respiratory failure, present on admission. Active. -Pt is a current and long time smoker, oxygen dependent and questionable adherence to home inhalers. -Likely secondary to over oxygenation at home and acute exacerbation of COPD -Hypercapnia on ABG -Respiratory viral PCR, procalcitonin and sputum culture negative. -Duonebs qid, while awake and Albuterol q2h prn. -Continue supplemental oxygen, goal SpO2 88-92%. 2. Probable acute exacerbation of COPD, present on admission. Active. -Decline in mental status for several weeks and notably somnolent on admission. -Oxygen dependent, 2L home O2. Poor compliance with home inhalers -Continue supplemental oxygen and bronchodilators, as above. -Start oral prednisone 40mg, once daily. 3. Altered mental status, unknown chronicity. present on admission. Resolved. -Likely secondary to #1. Pt may have underlying mild dementia. -Brain CT showed no acute intracranial findings and family reports pt back at baseline. -B12, folate,and ammonia wnl -UA no signs of infection, Utox negative. -Received Solu Medrol in the ED -Continue supplemental oxygen, goal SpO2 88-92%. 4. Hypertension, chronic. present on admission. Active. -Home medication held initially for permissive hypertension for possible stroke. -CT brain, as above. -Resume home medication, Lisinopril 10mg daily 5. Hyperlipidemia, chronic. present on admission. Active. -Resume home statin, Atorvastatin 20mg QHS 6. AAA, present on admission, chronic. Assume stable. -Request records from [facility] 7. Tobacco use disorder, present on admission. Active. -Pt reports 10-[id number]-rioh-history, continues to smoke -Nicotine patch. - Acetaminophen as needed for mild pain/fever/headache - Bowel regimen as needed - Antiemetic as needed Anticipated discharge home with family in 1-2 days pending resolution of respiratory failure. Pain Evaluation: Adequate Pain Control VTE Prophylaxis: Sub-Q Heparin (Unfractionated) Resuscitation Status: DNR/DNI:Do Not Resuscitate/Intubate Attending Statement The patient was seen and examined together with Dr. Alexander on 05-27-16 and I agree with the history, exam and plan as outlined in the note above. Martha Alexander DO May 27, 2016 06:52 Simone Burk MD May 28, 2016 15:32
--- NOTE | 2016-05-27 17:42 | NUR ---
Mentation/Respiratory Patient A&O x3. Answering questions and using call light appropriately. VSS. Maintaining SpO2 between 88-92% on 1-3L NC. Patient denies pain/discomfort. Patient resting in bed with family at bedside and call light within reach.
[2016-05-28 01:08] VITALS: PULSE 82; RESP 24; O2SAT 93
[2016-05-28] MEDS: 0.9% Sodium Chloride 1,000 ML IV SCH (02:28)
[2016-05-28 02:56] LABS: BASOPHILS % (AUTO) 0.1 % (0-3); EOSINOPHILS % (AUTO) 0.1 % (0-5); Mean Corpuscular Hemoglobin 31.2 pg (27.0-35.0); Mean Corpuscular Volume 100.8 fL (81-100); NEUTROPHILS % (AUTO) 72.2 % (40-74); Platelet Count 209 bil/L (150-400)
[2016-05-28 03:58] VITALS: BP 129/78; PULSE 84; RESP 16; O2SAT 91
--- NOTE | 2016-05-28 04:49 | NUR ---
Respiratory: PT on 0.5-3 L NC overnight to maintain sp02 in 88-92%. Sp02 monitored via continuos pulse ox. Pt has moist, non productive cough. sleeping intermittently throughout night.
[2016-05-28 06:04] VITALS: PULSE 91
[2016-05-28 07:38] VITALS: BP 134/77; PULSE 87; RESP 16; O2SAT 92
[2016-05-28] MEDS: Heparin 5,000 Unit/mL Inj SUBQ SCH (07:42)
[2016-05-28 08:00] VITALS: PULSE 97
[2016-05-28] MEDS: Albuterol-Ipratropium 3 mL Inhalation Solution NEB SCH (08:11)
[2016-05-28 08:12] VITALS: PULSE 93; RESP 22; O2SAT 93
[2016-05-28] MEDS ORDERED: predniSONE 20 mg Tablet PO SCH (09:35)
--- NOTE | 2016-05-28 11:25 | PCM.DIMED ---
Martha Alexander DO 05/28/16 1100: Discharge Instructions Date of Service May 28, 2016 Dates of Hospitalization May 25, 2016 at 23:10 Discharge Diagnosis Discharge Diagnosis 1. Acute on chronic hypercapnic respiratory failure, present on admission. Resolved 2. Probable acute exacerbation of COPD, present on admission. Resolved. 3. Altered mental status, unknown chronicity. present on admission. Resolved. 4. Hypertension, chronic. present on admission. Active. 5. Hyperlipidemia, chronic. present on admission. Active. 6. AAA, present on admission, chronic. Assume stable. 7. Tobacco use disorder, present on admission. Active. Diet Low fat, Low Sodium, Heart Healthy Activity No restrictions Call your provider Fever or Chills, Shortness of breath, Chest pain, Weakness (unilateral) Patient Instructions It is important that you use the inhalers as prescribed. These medications will help with your breathing but will also prevent exacerbations of your COPD and future hospitalizations. We recommend that you quit smoking. If you continue to smoke your shortness of breath and COPD will continue to progress. It is also very important that your oxygen saturation at home is 88-92%. As we discussed, due to smoking, your lungs are not capable of maintaining oxygen levels of 92- 100%. In addition to the inhalers we are sending you home today with a prescription for prednisone. Take 40mg for three more days and then take 20mg until you are seen by Dr. Knott. Other than the inhalers and prednisone no changes were made to your medications. Continue taking your medications as prescribed and discuss these with your PCP. . Follow-up plan Dr. Felix Knott [address] [phone] . Follow-up Provider: Felix Knott MD Follow-up with PCP in: 1 week Simone Burk MD 05/29/16 1650: Discharge Instructions Attending's Statement The patient was seen and examined together with Dr. Alexander on 05-28-16 and I agree with the history, exam and plan as outlined in the note above. Martha Alexander DO May 28, 2016 11:00 Simone Burk MD May 29, 2016 16:50
[2016-05-28] MEDS ORDERED: PRED-508 PO (11:35)
[2016-05-28] MEDS ORDERED: NICO1PAT6 TOPICAL (11:35)
[2016-05-28] MEDS ORDERED: UMEC1DIS IH (11:35)
--- NOTE | 2016-05-28 12:23 | NUR ---
Discharge Patient maintaining SPO2 at 88-92% on 1-4L NC. SBA assist to BSC. VSS. Paper Rx and discharge instructions printed and reviewed verbally with patient and family. All questions answered. IVs DC'd intact. Patient left unit via WC on 2L via NC, with all personal belongings accompanied by her son and was transported home via personal vehicle.
--- NOTE | 2016-05-28 13:25 | NUR ---
Social Work: Discharge D: Pt discussed in am rounds. Pt is medically stable for discharge. MEDICAL RADIATION THERAPIST met with pt at bedside for reassessment. Pt has be SBA during admission. Pt has no concerns about discharge home. She lives at home with her son who is also a caregiver. Pt's son to transport. EMR reviewed; no social work needs or barriers identified at this time. A: Pt who is I at baseline. P: Pt to discharge home via POV; no sw needs LACEY Umanzor
--- NOTE | 2016-05-28 16:27 | PCM.DC.MED ---
Discharge Summary Date of Service May 28, 2016 Dates of Hospitalization Date of Hospital Admission May 25, 2016 at 23:10 Date of Discharge: May 28, 2016 Providers: Admitting Physician: Richelle Gupta MD Primary Care Physician: Felix Knott MD Attending Physician: Richelle Gupta MD Diagnosis at Time of Discharge Diagnosis at Time of Discharge 1. Acute on chronic hypercapnic respiratory failure, present on admission. Resolved 2. Probable acute exacerbation of COPD, present on admission. Resolved. 3. Altered mental status, unknown chronicity. present on admission. Resolved. 4. Hypertension, chronic. present on admission. Active. 5. Hyperlipidemia, chronic. present on admission. Active. 6. AAA, present on admission, chronic. Assume stable. 7. Tobacco use disorder, present on admission. Active. Procedures XRay, CTs & MRIs X-RAY CHEST ONE VIEW, PORTABLE (05/25/16) IMPRESSION: No acute cardiopulmonary disease. Prominent central pulmonary arteries would be consistent with pulmonary arterial hypertension. Dictated by: Cruz Cool M.D. on 05/25/2016 at 20:11 CT BRAIN WITHOUT CONTRAST (05/26/16) IMPRESSION: 1. No acute intracranial findings. 2. Mild findings likely associated with microvascular ischemic changes. Dictated and approved by: Xiomy Strickland M.D. on 05/26/2016 at 10:07 ECG 12 Lead ECG- Normal sinus rhythm with heart rate of 93, no acute ischemic changes. Other Diagnostics SECOND ABG - DateTimeAnalyzed 02:33:00 -_ pH ____7.231 - 7.350 7.450 pCO2 ___87.8__ -mmHg 35.0 45.0 pO2 ___89.2__ -mmHg 69.0 116 HCO3- ___35.6__ -mmol/L 22.0 26.0 ABE ____5.6__ -mmol/L -2.0 2.0 tHb ___12.0__ -g/dL O2Hb ___91.8__ -% COHb ____3.5__ -% MetHb ____0.9__ -% sO2 ___96.0__ -% FIO2 ___50.0__ -% PEEP ____6.0__ -cmH2O Vt __250.0__ -L Drawn By af - Date/Time Notified____ 0 2:37:00 -_ Spontaneous_RR ___18.0__ -b/min Oxygen Device 1 ____BIPAP - Notified By af - Notified Whom ___amy rn - B 764 -mmHg tO2 ___15.6__ -Vol% Pablo test _Positive - FIRST ABG DateTimeAnalyzed 22:36:00 -_ pH ____7.324 - 7.350 7.450 pCO2 ___78.5__ -mmHg 35.0 45.0 pO2 ___57.9__ -mmHg 69.0 116 HCO3- ___39.6__ -mmol/L 22.0 26.0 ABE ___10.9__ -mmol/L -2.0 2.0 tHb ___12.2__ -g/dL O2Hb ___85.1__ -% COHb ____4.0__ -% MetHb ____0.9__ -% sO2 ___89.5__ -% FIO2 ___28.0__ -% Drawn By MM - Date/Time Notified____ 22:42:00 -_ Liter_Flow ____2.0__ -L/min Oxygen Device 1 __CANNULA - Notified By MM - Notified Whom DR BOB - B 762 -mmHg tO2 ___14.6__ -Vol% Pablo test _Positive - Brief History Per admission history and physical. Flori Espinoza DO. 05/26/16 0355 Mrs. Ureña is a 76 year-old female with a history of COPD who continues to smoke (since she was a teenager), hypercholesterolemia, and hypertension who was brought to the ED via EMS due to altered level of consciousness. Per pt's son (that she lives with) she got up at 8:30 a.m. and got a cup of coffee that he made for her then she almost immediately feel asleep in a chair. At about 1: 00 p.m., ([id number]?) checked on her and she was in the same chair, tripoding (leaning forward) and sleeping. It appears that she had not gotten up from her chair, not urinated, not had a cigarette (which is very unusual for her ) since she was last seen at 8:30 a.m. Vitals were stable including BP of 113/ 72. When asked if she was okay, she nodded yes then fell back asleep. At one point she said people were in the room who obviously were not there. She had no facial droop and her oil separator was strong and she could lift her head up. At one point she was "babbling" -- they could understand her words but they made no sense. Called EMS and patient walked from chair to gurney without protest (also unusual). Normally, patient is not very compliant with her inhalers. She has not been ill recently and no fevers, trauma, prior similar symptoms. She uses no opiates and uses oxygen at home at 2 liters. Daughter states that she seems to be breathing at baseline currently. Per son, she has an aortic aneurysm as well that she is supposed to follow up on every 6 months but she has continually canceled appointment and he is worried that has something to do with her presentation. In the ED, she was mildly tachypneic, and had scattered wheezes and rhonchi throughout. She was satting mid 90s on 2 L O2. She was drowsy, will wake with stimulus, interactive or a few seconds and then go back to sleep. Blood gas confirmed CO2 of 80, and the patient was placed on BiPAP with mental improvement per family. Family is clear that the patient would not wish to be intubated, and will but limited interventions at the BiPAP be desired. Chest x-ray: no colette infiltrate. Labs: no leukocytosis. Flu swab was negative. Overt pneumonia not clearly evident. UA was negative. Blood glucose normal. Patient received albuterol, Atrovent, steroids, magnesium in the ED. She was admitted for continued management on BiPAP support. . Hospital Course Shanel Urñea is a 76 year-old female with a history of COPD on 2 liters of home oxygen, hypertension, hyperlipidemia, and 4.3cm AAA reportedly stable who presented to the ED via EMS for altered level of consciousness. Admitted for acute on chronic respiratory failure and possible COPD exacerbation. 1. Acute on chronic hypercapnic respiratory failure, present on admission. Resolved. -Patient is a current and long time smoker and oxygen dependent at baseline with reportedly poor compliance to home inhalers. -Likely secondary to over oxygenation at home and acute exacerbation of COPD -Hypercapnia on ABG and respiratory viral PCR, procalcitonin, sputum culture all negative. -Initially requiring bipap. Patient was weaned off oxygen as tolerated and received Duonebs qid as well as Albuterol q2hrs as needed. -At time of discharge, patient was actually below prior home oxygen requirement of 2liters. SpO2 91% on 1.5liters nasal cannula. -Goal oxygen saturation was 88-92% due to CO2 retention secondary to COPD. 2. Probable acute exacerbation of COPD, present on admission. Resolved -Family reported a decline in mental status for several weeks prior to admission. Patient was notably somnolent on admission. -Patient is oxygen dependent on 2L home O2. Family reports poor compliance with home inhalers. Received one time dose of Solu Medrol in the ED -Continued supplemental oxygen and bronchodilators, as above. -Started oral prednisone 40mg, once daily. Patient discharged on oral prednisone , 40mg for three more days to complete 5 day course and then 20mg daily until seen by PCP. -Patient reported use of Albuterol inhaler at home and occasional use of another inhaler but was uncertain of what it is. -Family and patient deny prior exacerbation of COPD or prior hospitalization and she was discharged on a long-acting beta agonist as well as a long-acting anticholinergic inhaler. In addition to home Albuterol. -Patient will likely need an inhaled corticosteroid at some point if she does not respond to above regimen, if she has repeated exacerbations and continues to smoke. -Counseled patient regarding smoking cessation and provided script of Nicotine patch. 3. Altered mental status, unknown chronicity. present on admission. Resolved. -Likely secondary to #1. Patient may have underlying mild dementia. -Brain CT showed no acute intracranial findings and family reported patient's mental status at baseline prior to discharge. -B12, folate,and ammonia wnl -UA no signs of infection, Utox negative. -Continued supplemental oxygen, goal SpO2 88-92%. 4. Hypertension, chronic. present on admission. Stable -Home medication held initially for permissive hypertension for possible stroke. -CT brain, as above. -Resumed home dosing of Lisinopril, 10mg daily 5. Hyperlipidemia, chronic. present on admission. Stable -Resumed home dosing of Atorvastatin, 20mg QHS 6. AAA, present on admission, chronic. Assume stable. -Patient followed by provider in [place], request for records 7. Tobacco use disorder, present on admission. Stable -Patient reported a 76-[id number]-[id number]-history and continues to smoke -Nicotine patch provided while inpatient -Counseled patient regarding tobacco cessation. Exam Vital Signs (Last) Date Time Temp Pulse Resp B/P Pulse Ox O2 Delivery O2 Flow Rate FiO2 05/28/16 10:40 Supplement Oxygen 05/28/16 08:12 93 22 93 2.50 05/28/16 07:38 36.7 134/77 05/26/16 07:28 40 Exam General: Chronically ill-appearing, elderly female in no acute distress, nasal cannula in place. Alert and oriented. Appropriately interactive. HEENT: Normocephalic, atraumatic. External ears without defect. PERRLA, anicteric sclerae, Mucosa moist. Neck: Supple, non-tender, no lymphadenopathy or thyromegaly. +JVD. Cardiovascular: Regular rate and rhythm with no murmurs, rubs, or gallops appreciated Pulmonary: Symmetric chest rise with equal air entry bilaterally, lungs grossly clear with end-expiratory wheezing. No use of accessory muscles. Abdomen: Bowel tones present. Soft, nontender, nondistended. No hepatosplenomegaly or masses appreciated. Extremities: Trace lower extremity edema, no cyanosis or lymphadenopathy appreciated. Clubbing of fingers bilaterally. Skin: Normal temperature, decreased turgor; no rash, ulcers, or subcutaneous nodules appreciated. Neurological: Cranial nerves grossly intact. No focal neurological deficit. No known gait impairment. Psychiatric: Normal mood and affect. Alert and oriented to person, place, and time . Test 05/25/16 21:00 05/25/16 22:30 05/26/16 01:10 05/26/16 03:00 Troponin T 0.010ug/L (0.0-0.011) Pro-B-Type Natriuretic Peptide 178.8pg/mL (0-738) Hold Judge Top Tube Received (Received) Urine Color Yellow (YELLOW) Urine Appearance Clear (CLEAR,HAZY) Urine pH 6.0 (5.0-8.0) Urine Specific [place] 1.025 (1.003-1.035) Urine Protein Negativemg/dL (NEG,TRACE) Urine Glucose (UA) Negativemg/dL (NEGATIVE) Urine Ketones 15mg/dL (NEGATIVE) Urine Occult Blood Negative (NEGATIVE) Urine Nitrite Negative (NEGATIVE) Urine Bilirubin Negative (NEGATIVE) Urine Urobilinogen Normalmg/dL (NORMAL) Urine Leukocyte Esterase Negative (NEGATIVE) Urine RBC 0-2/hpf (0-2) Urine WBC 0-5/hpf (0-5) Urine Epithelial Cells Occasional/hpf (NONE-MOD) Urine Crystals None seen (NONE SEEN) Urine Bacteria None/hpf (NONE-FEW) Urine Hyaline Casts None/lpf (NONE) Urine Granular Casts None seen (NONE SEEN) Urine Waxy Casts None seen (NONE SEEN) Urine Red Blood Cell Casts None seen (NONE SEEN) Urine White Blood Cell Casts None seen (NONE SEEN) Urine Mucus None seen (None Seen) Urine Trichomonas None seen (NONE SEEN) Urine Yeast None (NONE SEEN) Urine Culture Reflexed Not indicated Vitamin B12 Level 471pg/mL (211-946) Folate > 19.9ng/mL (>3.0) Thyroid Stimulating Hormone (TSH) 1.460uIU/mL (0.450-4.500) Salicylates Level < 3.0ug/mL (30-250) Alcohol, Quantitative < 10mg/dL (0-10) Rapid Plasma Reagin Non reactive (Non Reactive) Urine Opiates Screen Negative Urine Methadone Screen Negative Urine Barbiturates Screen Negative Urine Amphetamines Screen Negative Urine Benzodiazepines Screen Negative Urine Cocaine Metabolite Screen Negative Urine Cannabinoids Screen Negative Test 05/26/16 03:55 05/27/16 03:00 05/28/16 02:15 Ammonia 38ug/dL (18-53) Procalcitonin < 0.05ng/mL (See Comment) White Blood Count 10.8th/mm3 (3.8-10.1) Red Blood Count 3.62mil/mm3 (3.90-5.20) Hemoglobin 11.3g/dL (12.0-15.6) Hematocrit 36.5% (35.0-46.0) Mean Corpuscular Volume 100.8fL (81-100) Mean Corpuscular Hemoglobin 31.2pg (27.0-35.0) Mean Corpuscular Hemoglobin Concent 31.0% (32.0-37.0) Red Cell Distribution Width 14.5% (12.3-15.4) Platelet Count 209bil/L (150-400) Neutrophils (%) (Auto) 72.2% (40-74) Lymphocytes (%) (Auto) 16.3% (14-46) Monocytes (%) (Auto) 11.0% (4-12) Eosinophils (%) (Auto) 0.1% (0-5) Basophils (%) (Auto) 0.1% (0-3) Sodium Level 141mEq/L (134-144) Potassium Level 3.9mEq/L (3.5-5.2) Chloride Level 101mEq/L (97-108) Carbon Dioxide Level 34mmol/L (18-29) Blood Urea Nitrogen 10mg/dL (8-27) Creatinine 0.30mg/dL (0.57-1.00) Estimat Glomerular Filtration Rate 310mL/min (>59) Glucose Level 91mg/dL (60-99) Calcium Level 7.8mg/dL (8.5-10.1) Total Bilirubin 0.2mg/dL (0.0-1.2) Aspartate Amino Transf (AST/SGOT) 14U/L (0-50) Alanine Aminotransferase (ALT/SGPT) 10U/L (0-32) Alkaline Phosphatase 48U/L (25-165) Total Protein 5.3g/dL (6.4-8.4) Albumin 3.1g/dL (3.4-5.0) Microbiology Results Respiratory virus panel negative, sputum culture grew normal cole. Discharge Medications Discharge Medications Atorvastatin (Lipitor) 20 Mg Tablet 20 MG PO HS (Reported) Lisinopril (Lisinopril) 10 Mg Tablet 10 MG PO DAILY (Reported) Nicotine 21 mg/24 hr Patch (Nicotine 21 mg/24 hr Patch) 1 Each Patch.td24 1 PATCH TOPICAL DAILY Prescribed by: JAMIR HUSSEIN DO Prednisone (Deltasone) 20 Mg Tablet 40 MG PO DAILY Take 2 tablets daily (40mg) for three days. Then take 1 tablet daily (20mg) until seen by PCP. Prescribed by: JAMIR HUSSEIN DO Ranitidine (Ranitidine) 150 Mg Capsule 150 MG PO BID (Reported) Umeclidinium Brm/Vilanterol Tr (Anoro Ellipta 62.5-25 Mcg INH) 1 Each Disk.w.dev 1 EACH IH DAILY Prescribed by: JAMIR HUSSEIN DO Followup Plan Follow-up plan Dr. Felix Knott [address] [address] [phone] . Discharge Diet: Low fat, Low Sodium, Heart Healthy Discharge Activity: No restrictions Patient Instructions It is important that you use the inhalers as prescribed. These medications will help with your breathing but will also prevent exacerbations of your COPD and future hospitalizations. We recommend that you quit smoking. If you continue to smoke your shortness of breath and COPD will continue to progress. It is also very important that your oxygen saturation at home is 88-92%. As we discussed, due to smoking, your lungs are not capable of maintaining oxygen levels of 92- 100%. In addition to the inhalers we are sending you home today with a prescription for prednisone. Take 40mg for three more days and then take 20mg until you are seen by Dr. Knott. Other than the inhalers and prednisone no changes were made to your medications. Continue taking your medications as prescribed and discuss these with your PCP. . Follow-up Provider: Felix Knott MD Follow-up with PCP in: 1 week Attending Statement The patient was seen and examined together with Dr. Hussein on 05-28-16 and I agree with the history, exam and plan as outlined in the note above. copies to: Felix Knott MD, Courtney M DO May 28, 2016 14:26 Simone Burk MD May 29, 2016 16:51
== END 2016-05-28 12:00 | disposition home or self-care (01) | DRG 189 ==
LOC: EDBD 19:16 → SED 19:16 → PCC 23:10 → OBSVTOIN 23:10
PROVIDERS: ADMIT Specialist; ATTEND Specialist
PROC: 4A033B1 Measurement of Arterial Pressure, Peripheral, Percutaneous Approach (ICD-10-PCS; principal; 2016-05-25)
DX: J96.22 Acute and chronic respiratory failure with hypercapnia (principal); J44.1 Chronic obstructive pulmonary disease with (acute) exacerbation; R41.82 Altered mental status, unspecified; I10 Essential (primary) hypertension; E78.5 Hyperlipidemia, unspecified; F17.210 Nicotine dependence, cigarettes, uncomplicated; Z99.81 Dependence on supplemental oxygen; Z66 Do not resuscitate; I71.4 Abdominal aortic aneurysm, without rupture

== ENCOUNTER 2016-11-01 17:54 | Inpatient (IN) | payer MEDICARE ==
[~2016-11-01] VITALS: Ht 154.9 cm; Wt 62.6 kg
[~2016-11-01 17:54] MED LIST: ATOR20TA PO; LISI10TA PO; NICO1PAT6 TOPICAL; PRED-508 PO; RANI150C4 PO; UMEC1DIS IH
[2016-11-01 18:00] VITALS: BP 148/66; PULSE 97; RESP 20; O2SAT 81
--- NOTE | 2016-11-01 18:17 | ED.REPORT ---
HPI-General Illness Date of Service Nov 01, 2016 ED Provider: Charly Singh MD A 76 year old female with a history of COPD and hypertension on 1 L of home oxygen is brought to the ED via EMS for evaluation of reported altered level of mentation. Per pt's family, the pt has been refusing to use her home oxygen and showing clear signs of decreased mental status. She became combative today and her oxygen saturation was found to be in the high 60's and low 70's. Paramedics were called but decided not to transport the pt at that time. She was transported to the ED two hours later when her condition did not improve and her mentation remained mildly decreased from baseline. The pt is complaining of nothing at this time with the exception of a fall earlier today, though she is unable to provide much information about this event. The pt's family does not believe that the pt actually fell. History is limited and difficult to obtain due to pt's mental status. Nursing Notes Stated Complaint: DECREASED MENTAL STATUS Chief Complaint: General Complaint Nursing Notes Reviewed: Yes Allergies: Coded Allergies: No Known Allergies (Unverified , 05/25/16) Scheduled Lisinopril (Lisinopril) 10 Mg Tablet 10 MG PO QAM Lovastatin (Lovastatin) 20 Mg Tablet 20 MG PO HS Nicotine 21 mg/24 hr Patch (Nicotine 21 mg/24 hr Patch) 1 Each Patch.dysq 1 PATCH TRANSDERM DAILY Omeprazole (Omeprazole) 20 Mg Capsule.dr 20 MG PO QAM Prednisone (PredniSONE) 10 Mg Tablet 20 MG PO DAILYWM Ranitidine (Ranitidine) 150 Mg Capsule 150 MG PO BIDWM Umeclidinium Brm/Vilanterol Tr (Anoro Ellipta 62.5-25 Mcg INH) 1 Each Disk.w.dev 1 EACH IH DAILY Scheduled PRN Zolpidem (Zolpidem) 5 Mg Tablet 5 MG PO HS PRN PRN For Insomnia General Time Seen by : 18:16 Chief Complaint Other (Decreased LOC) Hx Obtained From: Patient, Daughter, EMS Arrived By: Ambulance Sudden in Onset?: No Recent Healthcare: Recent doctor visit, Recent hospitalization Similar Sx Previous: Yes Past Medical History Past Medical History COPD on 2lNC Hypercholesterolemia PFTs at [facility] 10/2015 4.3 cm AAA, fairly stable Reports: Hypertension Past Surgical History Spinal fusion 20 years ago Knee surgery Smoking History Current Every Day Smoker Social History Alcohol Use: Denies alcohol use Drug Use: Denies drug use Ambulatory Status Independent Review of Systems Unable to Obtain ROS Mental status Physical Exam Constitutional: Well-developed, well-nourished. Not diaphoretic. Following commands. Head: Normocephalic and atraumatic. Mouth/Throat: Oropharynx is clear and moist. No oropharyngeal exudate. Eyes: EOM are normal. Pupils are equal, round, and reactive to light. Neck: Supple, no tracheal deviation. Cardiovascular: Normal rate, regular rhythm. Equal and intact distal pulses throughout. Trace lower extremity edema bilaterally. Pulmonary/Chest: Coarse expiratory breath sounds bilaterally. No respiratory distress. Abdominal: Soft. No distension. There is no tenderness, rebound, or guarding. Bowel sounds present. Musculoskeletal: Range of motion grossly intact, moving all extremities. No edema or tenderness appreciated. Neurological: AOx1. Grossly nonfocal exam. Strength and sensation intact and equal to bilateral upper and lower extremities. Skin: Warm and dry, no rashes or pallor appreciated. Psychiatric: Appropriate mood and affect. Behavior appears normal. Vital Signs Vital Signs Date Time Temp Pulse Resp B/P Pulse Ox O2 Delivery O2 Flow Rate FiO2 11/01/16 23:27 36.6 94 21 114/56 94 Nasal Cannula 3 11/01/16 20:45 85 21 110/52 95 3 11/01/16 18:29 90 16 124/57 95 Nasal Cannula 3 11/01/16 18:00 36.9 97 20 148/66 81 Room Air Initial VS: Reviewed Interpretation & Diagnostics Lab Results Interpretation Result Diagram: 11/01/16 1820 11/01/16 1820 Test 11/01/16 18:20 11/01/16 20:35 White Blood Count 10.2th/mm3 (3.8-10.1) Red Blood Count 4.23mil/mm3 (3.90-5.20) Hemoglobin 13.2g/dL (12.0-15.6) Hematocrit 43.4% (35.0-46.0) Mean Corpuscular Volume 102.6fL (81-100) Mean Corpuscular Hemoglobin 31.2pg (27.0-35.0) Mean Corpuscular Hemoglobin Concent 30.4% (32.0-37.0) Red Cell Distribution Width 15.4% (12.3-15.4) Platelet Count 259bil/L (150-400) Neutrophils (%) (Auto) 89.0% (40-74) Lymphocytes (%) (Auto) 6.1% (14-46) Monocytes (%) (Auto) 4.7% (4-12) Eosinophils (%) (Auto) 0% (0-5) Basophils (%) (Auto) 0.1% (0-3) Sodium Level 140mEq/L (134-144) Potassium Level 4.6mEq/L (3.5-5.2) Chloride Level 96mEq/L (97-108) Carbon Dioxide Level 37mmol/L (18-29) Blood Urea Nitrogen 18mg/dL (8-27) Creatinine 0.45mg/dL (0.57-1.00) Estimat Glomerular Filtration Rate 194mL/min (>59) Glucose Level 130mg/dL (60-99) Calcium Level 9.7mg/dL (8.5-10.1) Total Bilirubin 0.3mg/dL (0.0-1.2) Aspartate Amino Transf (AST/SGOT) 14U/L (0-50) Alanine Aminotransferase (ALT/SGPT) 10U/L (0-32) Alkaline Phosphatase 55U/L (25-165) Troponin T < 0.010ug/L (0.0-0.011) Total Protein 6.6g/dL (6.4-8.4) Albumin 3.7g/dL (3.4-5.0) Procalcitonin 0.02ng/mL (0.00-0.08) Urine Color Yellow (YELLOW) Urine Appearance Cloudy (CLEAR,HAZY) Urine pH 7.5 (5.0-8.0) Urine Specific [place] 1.010 (1.003-1.035) Urine Protein Negativemg/dL (NEG,TRACE) Urine Glucose (UA) Negativemg/dL (NEGATIVE) Urine Ketones Negativemg/dL (NEGATIVE) Urine Occult Blood Negative (NEGATIVE) Urine Nitrite Negative (NEGATIVE) Urine Bilirubin Negative (NEGATIVE) Urine Urobilinogen Normalmg/dL (NORMAL) Urine Leukocyte Esterase Negative (NEGATIVE) Urine RBC 0-2/hpf (0-2) Urine WBC 0-5/hpf (0-5) Urine Epithelial Cells Few/hpf (NONE-MOD) Urine Crystals Amorphous urates (NONE Urine Bacteria Few/hpf (NONE-FEW) Urine Hyaline Casts None/lpf (NONE) Urine Granular Casts None seen (NONE SEEN) Urine Waxy Casts None seen (NONE SEEN) Urine Red Blood Cell Casts None seen (NONE SEEN) Urine White Blood Cell Casts None seen (NONE SEEN) Urine Mucus None seen (None Seen) Urine Trichomonas None seen (NONE SEEN) Urine Yeast None (NONE SEEN) Urinalysis Comment None Urine Culture Reflexed Not indicated ECG Interpretation ECG Interpretation: normal sinus rhythm with a rate of 84 Time: 19:03 Interpreted by: ED physician X-Ray Chest Interpretation Chest Xray Interpretation: IMPRESSION: 1. Bilateral infrahilar bandlike opacities consistent with atelectasis, developing consolidation, or aspiration. 2. Mild pulmonary edema. Dictated by: Scooby Lima M.D. on 11/01/2016 at 20:55 Approved by: Scooby Lima M.D. on 11/01/2016 at 20:57 Interpretation / Wet Read by: Interpret - Radiologist CT Head Interpretation IMPRESSION: 1. No acute intracranial abnormality. 2. Mild cerebral volume loss and chronic white matter small ischemic changes. Dictated by: Scooby Lima M.D. on 11/01/2016 at 21:12 Approved by: Scooby Lima M.D. on 11/01/2016 at 21:13 Interpretation / Wet Read by: Interpret - Radiologist CT C-Spine Interpretation IMPRESSION: 1. No acute fractures in the cervical spine. 2. Multilevel spondylolisthesis likely degenerative in etiology. 3. Mild anterior compression deformity of the T6 vertebral body of indeterminate acuity but new compared to the prior CT study of 11/07/10. No retropulsed bony fragments. 4. Multilevel degenerative changes throughout the cervical spine. Dictated by: Scooby Lima M.D. on 11/01/2016 at 21:14 Approved by: Scooby Lima M.D. on 11/01/2016 at 21:20 Interpretation / Wet Read by: Interpret - Radiologist Re-Eval/Medical Decision Med Decision/Clinical Course In summary, 76-year-old female with a complex past medical history including COPD presented to the ED for evaluation of reported hypoxia earlier today and not acting like herself. She has a grossly normal neurologic exam with the exception of being oriented only to her current location, however this is not significantly changed from her baseline per family report. Initially hypoxic upon arrival, however responded appropriately to her home oxygen here. Does have coarse breath sounds throughout chest x-ray demonstrates findings consistent with possible pneumonia. Plan to treat as both COPD exacerbation and community-acquired pneumonia; patient started on Levaquin and Decadron in the ED. CT scan of the patient's head and cervical spine without any evidence of acute abnormality and patient has no cervical tenderness to palpation nor is complaining of any neck pain. Given the above, patient will be admitted for further management and evaluation. Discussed with the patient's family, who were agreeable and had no further questions. Source of Hx: Old records Time of Eval: 20:11 Re-Evaluation/Progress Note: Spoke with pt's daughter regarding pt's case. Additional history is obtained. The need for admission is discussed. The pt's daughter understands and agrees with the plan. All questions are addressed at this time. Time of Eval: 23:11 Patient Status: Condition improved Re-Evaluation/Progress Note: Pt rechecked, who is stable. She is sleeping comfortably at this time. Consultation : Referral / Consult Name: Christine Ledezma DO Consulted With: Hospitalist Call Returned at: 23:17 Obgyn Specialist: Agrees with eval, Agrees with plan, Accepts admit Note: Spoke with Dr. Ledezma, hospitalist, regarding pt's case. Dr. Ledezma agrees with the evaluation and agrees to admit the pt. Counseled Regarding: Diagnosis, Lab results, Need for admission Discharge & Departure Primary Impression: COPD with acute exacerbation Additional Impression: Community acquired pneumonia Disposition: ADMITTED TO HOSPITAL Discharge Condition All VS Reviewed: Yes Condition: Stable Referrals: Felix Knott MD (PCP) Linda Attestation Portions of this note were transcribed by Mahin Mcallister. I, Dr. Singh personally performed the history, physical exam and medical decision-making; I reviewed and confirmed the accuracy of the information in the transcribed note. Signed by: Linda Marks, 11/01/16 and 2925. copies to: Felix Knott MD, William B MD Nov 01, 2016 18:17 MAHIN MCALLISTER Nov 01, 2016 19:28
[2016-11-01 18:29] VITALS: BP 124/57; PULSE 90; RESP 16; O2SAT 95
[2016-11-01 18:59] LABS: BASOPHILS % (AUTO) 0.1 % (0-3); EOSINOPHILS % (AUTO) 0 % (0-5); MONOCYTES % (AUTO) 4.7 % (4-12); Mean Corpuscular Hemoglobin 31.2 pg (27.0-35.0); Mean Corpuscular Volume 102.6 fL (81-100); Platelet Count 259 bil/L (150-400)
[2016-11-01 20:44] LABS: APPEARANCE,URINE CLOUDY (CLEAR,HAZY); COLOR,URINE YELLOW (YELLOW); OCCULT BLOOD,URINE NEGATIVE (NEGATIVE); PH,URINE 7.5 (5.0-8.0); UROBILINOGEN,URINE NORMAL (NORMAL)
[2016-11-01 20:45] VITALS: BP 110/52; PULSE 85; RESP 21; O2SAT 95
--- NOTE | 2016-11-01 20:58 | DRSVH ---
PROCEDURE: X-RAY CHEST ONE VIEW, PORTABLE ([id number]) INDICATIONS: ALTERED MENTAL STATUS TECHNIQUE: One view of the chest was acquired. COMPARISON: [facility], CR, XR CHEST 1VW (PORTABLE), 05/25/2016, 19:46. FINDINGS: Surgical changes and devices: None. Lungs and pleura: No pleural effusions or pneumothorax. There are bibasilar linear infrahilar opaci ties. There is also mild interstitial prominence consistent with mild edema. Mediastinum: Mediastinal contours appear unchanged. Heart size is normal. Bones and chest wall: No suspicious bony lesions. Overlying soft tissues appear unremarkable. IMPRESSION: 1. Bilateral infrahilar bandlike opacities consistent with atelectasis, developing consolidation, or aspiration. 2. Mild pulmonary edema. Dictated by: Scooby Lima M.D. on 11/01/2016 at 20:55 Approved by: Scooby Lima M.D. on 11/01/2016 at 20:57
--- NOTE | 2016-11-01 21:15 | DRSVH ---
PROCEDURE: CT BRAIN WITHOUT CONTRAST ([id number]) INDICATIONS: Fall; eval for fx, acute intracranial abnl TECHNIQUE: Noncontrast 4.5 mm thick angled axial sections acquired from the foramen magnum to the vertex, with c oronal reformats. COMPARISON: [facility], CT, CT BRAIN WO CON, 05/26/2016, 9:24. FINDINGS: Image quality: There is streak artifact associated with patient's dental hardware. CSF spaces: Basal cisterns are patent. No extra-axial fluid collections. The ventricles are symmet marielos in size and shape. There is mild cerebral volume loss, with resultant ventricular and sulcal pro minence. Brain: No intracranial hemorrhage, mass, or mass effect. There are subcortical, periventricular and deep white matter hypodensities consistent with mild chronic small vessel ischemic changes. There i s intracranial internal carotid artery atherosclerosis. Skull and face: Calvarium and visualized facial bones appear intact, without suspicious lesions. Sinuses: Visualized sinuses and mastoids are clear. IMPRESSION: 1. No acute intracranial abnormality. 2. Mild cerebral volume loss and chronic white matter small ischemic changes. Dictated by: Scooby Lima M.D. on 11/01/2016 at 21:12 Approved by: Scooby Lima M.D. on 11/01/2016 at 21:13
--- NOTE | 2016-11-01 21:22 | DRSVH ---
PROCEDURE: CT CERVICAL SPINE WITHOUT CONTRAST ([id number]) INDICATIONS: Fall; eval for fx, acute intracranial abnl TECHNIQUE: Noncontrast 3 mm thick sections acquired from the skull base to the T4 level. Sagittal and coronal r eformats were then constructed. For radiation dose reduction, the following was used: automated exp osure control, adjustment of mA and/or kV according to patient size. COMPARISON: None. FINDINGS: Image quality: There is motion artifact limiting evaluation. Bones: No fractures or dislocations in the cervical spine. There is mild anterolisthesis at C3-C4 w ith mild retrolisthesis at C4-C5 and minimal retrolisthesis at C5-C6 and C6-C7. Minimal anterolisthe sis also present at C7-T1. There is a mild anterior compression deformity of the T6 vertebral body o f indeterminate acuity but new compared to the old chest CT from 11/07/10. There is loss of height of up to 35%. No retropulsed bony fragments. Visualized superior ribs are intact. There is multilevel disc space narrowing throughout the cervical spine including moderate to severe n arrowing at C4-T1. There is also multilevel uncovertebral and facet joint arthropathy throughout the cervical spine. Soft tissues: Prevertebral soft tissues are normal in thickness. No paravertebral hematomas. No ap ical pneumothoraces. There are severe centrilobular emphysematous changes within the visualized lung s. IMPRESSION: 1. No acute fractures in the cervical spine. 2. Multilevel spondylolisthesis likely degenerative in etiology. 3. Mild anterior compression deformity of the T6 vertebral body of indeterminate acuity but new comp ared to the prior CT study of 11/07/10. No retropulsed bony fragments. 4. Multilevel degenerative changes throughout the cervical spine. Dictated by: Scooby Lima M.D. on 11/01/2016 at 21:14 Approved by: Scooby Lima M.D. on 11/01/2016 at 21:20
--- NOTE | 2016-11-01 21:59 | ABG ---
DateTimeAnalyzed 21:54:00 -_ pH ____7.336 - pCO2 ___79.3__ -mmHg pO2 ___49.5__ -mmHg HCO3- ___41.3__ -mmol/L ABE ___12.5__ -mmol/L tHb ___12.4__ -g/dL O2Hb ___80.2__ -% COHb ____4.8__ -% MetHb ____0.9__ -% sO2 ___85.1__ -% FIO2 ___21.0__ -% Drawn By LT - Date/Time Notified____ 21:59:00 -_ Notified Whom ___DR. MANUEL - B 757 -mmHg tO2 ___14.0__ -Vol% Pablo test N/A -
[2016-11-01] MEDS ORDERED: levoFLOXacin Inj 750 MG in IV Premix 1 EACH IV ONE (23:05)
[2016-11-01] MEDS ORDERED: Dexamethasone 10 mg/mL Inj IVPUSH ONE (23:05)
[2016-11-01 23:27] VITALS: BP 114/56; PULSE 94; RESP 21; O2SAT 94
[2016-11-02] VITALS (12 sets, daily range): BP systolic 125–154; BP diastolic 61–82; PULSE 78–103; RESP 16–22; O2SAT 88–100
[2016-11-02] MEDS ORDERED: LISI10TA PO (00:11)
[2016-11-02] MEDS ORDERED: ZOLP5TAB6 PO (00:11)
[2016-11-02] MEDS ORDERED: NICO1PAT16 TRANSDERM (00:11)
[2016-11-02] MEDS ORDERED: OMEP20CA11 PO (00:11)
[2016-11-02] MEDS ORDERED: LOVA20TA PO (00:11)
[2016-11-02] MEDS ORDERED: PRE10 PO (00:14)
[2016-11-02] MEDS: 0.9% Sodium Chloride 1,000 ML IV SCH ×3 (01:23→20:20)
--- NOTE | 2016-11-02 01:26 | NUR ---
admit note: pt. admitted for sob, altered mental status, desats. o2 on room air was in 70's. pt. is oriented to person, confused to time and place, unreliable historian.
--- NOTE | 2016-11-02 02:09 | PCM.HPMED ---
Subjective Date of Service Nov 02, 2016 Primary Provider: Admitting Physician: Christine Ledezma DO Primary Care Physician: Felix Knott MD Attending Physician: Christine Ledezma DO Admit Status: From the Emergency Department Chief Complaint: Altered mental status History of Present Illness: Shanel Ureña is an 76-year-old woman with history of COPD and hypertension on home oxygen who presented to the emergency department today by EMS for evaluation of altered level of mentation. Patient's family conveys a store that she had been r refusing to wear her home oxygen, showing clear signs of decreased mentation. Reportedly, she became combative and oxygen saturation was found to be in the high 60s low 70s during the event. Several hours later she came to the emergency department where condition did not improve and she was below baseline. Patient has no complaints at bedside, ROS ordonez negative, she still shows evidence of being altered, i.e. not knowing the year, where she has, or why she is here. Denies recent ill contacts. In the emergency department: Initial vitals were temperature of 36.9 Celsius, pulse 97, respiratory rate 20, blood pressure 148/66, pulse ox 81% on room air. She was placed on 3 L nasal cannula, and her O2 saturation improved to the mid 90s. CBC showed mild leukocytosis at 10,200 white blood cells, left shift 89% neutrophils, macrocytosis MCV 102.6 with no anemia, serum bicarbonate 37 on CMP , troponin was negative, Procalcitonin 0.02 liver function is normal, creatinine 0.45. Urinalysis was negative for infection. Chest x-ray showed bilateral infrahilar bandlike opacities consistent with atelectasis, developing consolidation, or aspiration. Mild pulmonary edema. EKG showed sinus rhythm, "probable left atrial enlargement" heart rate of 84, QTC 413, normal axis, no signs of acute ischemia or infarction. Review of Systems: A comprehensive review of systems was conducted with the patient and found to be negative except as above in the history of present illness. Allergies Coded Allergies: No Known Allergies (Unverified , 05/25/16) Home Medications Atorvastatin (Lipitor) 20 Mg Tablet 20 MG PO HS (Reported) Lisinopril (Lisinopril) 10 Mg Tablet 10 MG PO DAILY (Reported) Nicotine 21 mg/24 hr Patch (Nicotine 21 mg/24 hr Patch) 1 Each Patch.td24 1 PATCH TOPICAL DAILY Prescribed by: JAMIR HUSSEIN DO Prednisone (Deltasone) 20 Mg Tablet 40 MG PO DAILY Take 2 tablets daily (40mg) for three days. Then take 1 tablet daily (20mg) until seen by PCP. Prescribed by: JAMIR HUSSEIN DO Ranitidine (Ranitidine) 150 Mg Capsule 150 MG PO BID (Reported) Umeclidinium Brm/Vilanterol Tr (Anoro Ellipta 62.5-25 Mcg INH) 1 Each Disk.w.dev 1 EACH IH DAILY Prescribed by: JAMIR HUSSEIN DO PMH Hypertension AAA Tobacco abuse COPD Surgical History Spinal fusion greater than 20 years ago Total left knee replacement Family History Patient denies any family medical problems, no strokes, heart attacks, cancers. Unable to say why her parents passed. Social History Hx Alcohol Use: No (not recently) Hx Substance Use: No Smoking Status: Current Every Day Smoker Living Arrangement: with Family Exam Vital Signs Vital Sign - Last Date Time Temp Pulse Resp B/P Pulse Ox O2 Delivery O2 Flow Rate FiO2 11/02/16 01:42 Supplement Oxygen 11/02/16 00:53 36.7 85 20 125/71 100 3.00 Exam General: Laying in bed, no apparent distress. Easily awoken to verbal stimuli HEENT: Normocephalic, atraumatic, EOMI grossly, mucous membranes moist, neck supple without lymphadenopathy, conjunctiva pink. Cardiovascular: Regular rate and rhythm, no clicks murmurs rubs, peripheral pulses 2/4 equal bilaterally Pulmonary: coarse breath sounds, diffuse rhonchi GI: Soft to palpation, bowel sounds present 4, no hepatosplenomegaly. Negative rebound. Extremities: No edema appreciated. No tenderness, asymmetry. There is a substantial surgical scar to left anterior knee sagittal orientation, papular purple annular lesion to proximal knee. Neuro: Neurologically grossly intact, strength is equal bilaterally upper and lower extremities. : no [place] in place Skin: no rash or ecchymosis MSK: Able to move extremities on their own volition, strength 5 out of 5 equal bilaterally to upper and lower extremities. Lymph: no cervical or supraclavicular lymphadenopathy Psych: Oriented to self, not location, time, or situation. Lab and Diagnostics Result Diagram: 6/11/17 1820 6/11/17 1820 X-Rays, CTs and MRIs Chest x-ray performed 11/01/2016 IMPRESSION: 1. Bilateral infrahilar bandlike opacities consistent with atelectasis, developing consolidation, or aspiration. 2. Mild pulmonary edema. Dictated by: Scooby Lima M.D. on 11/01/2016 at 20:55 CT C-spine without contrast performed 11/01/2016 IMPRESSION: 1. No acute fractures in the cervical spine. 2. Multilevel spondylolisthesis likely degenerative in etiology. 3. Mild anterior compression deformity of the T6 vertebral body of indeterminate acuity but new compared to the prior CT study of 11/07/10. No retropulsed bony fragments. 4. Multilevel degenerative changes throughout the cervical spine. Dictated by: Scooby Lima M.D. on 11/01/2016 at 21:[address] without contrast IMPRESSION: 1. No acute intracranial abnormality. 2. Mild cerebral volume loss and chronic white matter small ischemic changes. Dictated by: Scooby Lima M.D. on 11/01/2016 at 21:12 12-lead ECG EKG showed sinus rhythm, "probable left atrial enlargement" heart rate of 84, QTC 413, normal axis, no signs of acute ischemia or infarction. Additional Diagnostics: VBG DateTimeAnalyzed 21:54:00 -_ pH ____7.336 - pCO2 ___79.3__ -mmHg pO2 ___49.5__ -mmHg HCO3- ___41.3__ -mmol/L ABE ___12.5__ -mmol/L tHb ___12.4__ -g/dL O2Hb ___80.2__ -% COHb ____4.8__ -% MetHb ____0.9__ -% sO2 ___85.1__ -% FIO2 ___21.0__ -% Drawn By LT - Date/Time Notified____ 21:59:00 -_ Notified Whom ___DR. JACKSON - B 757 -mmHg tO2 ___14.0__ -Vol% Pablo test N/A - Assessment & Plan Mrs. Ureña is a 76 year-old female with a history of COPD who continues to smoke (since she was a teenager), hypercholesterolemia, and hypertension who was brought to the ED due to altered level of consciousness. #Acute hypercarbic hypoxemic respiratory failure -PCO2 79.3, PaO2 49.5. -Secondary to acute COPD exacerbation -Treatment as below #Acute on chronic COPD exacerbation, present on admission -Secondary to nonadherence to medical treatment - Reviewed records from previous admission for COPD -Continue home medications and nebulizers -Solu-Medrol given in the ER, continue Oral Prednisone 40mg daily for 5 days ( ending 11/07/16) -Azithromycin as above -BiPAP as needed for hypercarbia -Titrate nasal O2 to a SPO2 88-92% -DuoNeb's as needed -Home umeclidinium/Vilanterol Scheduled daily. -repeat cxr with clinical decline #Acute community-acquired pneumonia, present on admission -Bilateral infrahilar opacities, developing consolidation, possible aspiration on radiography. Hypoxemia. -Sputum cultures, Legionella and strep pneumo urine antigen -Ceftriaxone 2g IV daily plus azithromycin 500mg Oral Daily. -MRSA rapid screen -Swallow eval. #Acute encephalopathy, present on admission, she minimally initiated -Most likely secondary to hypercarbia, VBG serum CO2=79 -Symptoms are synonymous to previous admission in May of this year, workup for hepatic encephalopathy, drug induced encephalopathy was negative. -Head CT negative for acute hemorrhagic stroke, reviewed by admitting team -Repeat ABG now, if remains hypercapnic move to PCC status and placed on BiPAP #AAA, present on Admission. - Presumed Stable. #Tobacco abuse - Nicotine patches. - Discussed tobacco cessation with patient. #Hyperlipidemia - Continue Lovastatin - Acetaminophen as needed for mild pain/fever/headache - Bowel regimen as needed - Antiemetic as needed Patient admitted under inpatient status with expected length of stay > 2 midnights for severity of present symptoms, complexities of treatment plan and risk for adverse events Pain Evaluation: Adequate Pain Control GI Prophylaxis: Not indicated VTE Prophylaxis: Sub-Q Heparin (Unfractionated) Resuscitation Status: DNR/DNI:Do Not Resuscitate/Intubate Limited Interventions: BiPAP Attending Statement The patient was seen and examined together with house staff on 11/02/2016 and I agree with the history, exam and plan as outlined in the note above. David Martinez DO Nov 02, 2016 02:09 Christine Ledezma DO Nov 02, 2016 06:34
--- NOTE | 2016-11-02 03:20 | ABG ---
DateTimeAnalyzed 03:14:00 -_ pH ____7.280 - 7.350 7.450 pCO2 ___91.3__ -mmHg 35.0 45.0 pO2 ___82.2__ -mmHg 69.0 116 HCO3- ___41.5__ -mmol/L 22.0 26.0 ABE ___11.5__ -mmol/L -2.0 2.0 tHb ___12.2__ -g/dL O2Hb ___91.1__ -% COHb ____3.8__ -% MetHb ____1.0__ -% sO2 ___95.7__ -% FIO2 ___24.0__ -% Drawn By blf - Date/Time Notified____ 03:19:00 -_ Spontaneous_RR ___16.0__ -b/min Liter_Flow ____1.0__ -L/min Oxygen Device 1 __CANNULA - Notified By blf - Notified Whom ___DR.O'EVELYN - B 756 -mmHg tO2 ___15.8__ -Vol% Pablo test _Positive -
[2016-11-02] MEDS: cefTRIAXone Inj 2,000 MG in Dextrose 5% Minibag Plus 50 ML IV SCH (04:46)
[2016-11-02] MEDS ORDERED: Albuterol-Ipratropium 3 mL Inhalation Solution ONE (04:49)
--- NOTE | 2016-11-02 05:13 | NUR ---
transfer note: pt. transferred to PCC room 2008, watch o2 carefully, neuro checks, repeat ABG's, possible bipap if pt. requires. Pt. awakens easily, knows shes at in [place], unsure of year.
[2016-11-02] MEDS ORDERED: Albuterol 2.5 mg/3 mL Inhalation Solution NEB PRN (05:15)
--- NOTE | 2016-11-02 05:39 | ABG ---
DateTimeAnalyzed 05:34:00 -_ pH ____7.339 - 7.350 7.450 pCO2 ___75.6__ -mmHg 35.0 45.0 pO2 ___59.1__ -mmHg 69.0 116 HCO3- ___39.6__ -mmol/L 22.0 26.0 ABE ___11.3__ -mmol/L -2.0 2.0 tHb ___12.2__ -g/dL O2Hb ___86.8__ -% COHb ____3.8__ -% MetHb ____0.9__ -% sO2 ___91.1__ -% FIO2 ___24.0__ -% Drawn By blf - Date/Time Notified____ 05:38:00 -_ Spontaneous_RR ___16.0__ -b/min Liter_Flow ____1.0__ -L/min Oxygen Device 1 __CANNULA - Notified By blf - Notified Whom ___DR. O'DONNEL - B 757 -mmHg tO2 ___14.9__ -Vol% Pablo test _Positive -
[2016-11-02 06:56] LABS: BASOPHILS % (AUTO) 0 % (0-3); EOSINOPHILS % (AUTO) 0 % (0-5); MONOCYTES % (AUTO) 1.9 % (4-12); Mean Corpuscular Hemoglobin 29.9 pg (27.0-35.0); Mean Corpuscular Volume 101.7 fL (81-100); NEUTROPHILS % (AUTO) 88.7 % (40-74); Platelet Count 246 bil/L (150-400)
[2016-11-02] MEDS: Pantoprazole 40 mg ER24 Tablet PO SCH (07:01)
[2016-11-02] MEDS ORDERED: _PredniSONE 10 mg Tablet PO SCH (08:00)
[2016-11-02] MEDS ORDERED: Albuterol-Ipratropium 3 mL Inhalation Solution NEB SCH ×2 (08:30)
[2016-11-02] MEDS ORDERED: Tiotropium 18mcg/Cap 5 Capsule Inhaler Kit INHALATION SCH (08:30)
[2016-11-02] MEDS: predniSONE 20 mg Tablet PO SCH (08:32)
[2016-11-02] MEDS: Heparin 5,000 Unit/mL Inj SUBQ SCH ×2 (08:32→21:49)
[2016-11-02] MEDS: Albuterol-Ipratropium 3 mL Inhalation Solution NEB SCH ×4 (08:44→20:05)
[2016-11-02] MEDS: Arformoterol 15 mCg/2 mL Inhalation Solution NEB SCH ×2 (09:34→20:05)
--- NOTE | 2016-11-02 12:24 | NUR ---
Case Management: IMM given and explained to pt. Ernestine BARROWRN
--- NOTE | 2016-11-02 14:33 | PCM.PNMED ---
Subjective Date of Service Nov 02, 2016 Subjective Patient states that she feels much improved this AM. She still feels some lingering SOB, and BARROS. She denies chest pain, abdominal pain, dysuria, nausea, or vomiting. Overnight the patient was slightly altered upon presentation and obstinate with care. Comprehensive ROS negative except as listed above. Exam Vital Signs Vital Sign - Last Date Time Temp Pulse Resp B/P Pulse Ox O2 Delivery O2 Flow Rate FiO2 11/02/16 13:25 81 18 92 Nasal Cannula 1.00 11/02/16 11:09 36.6 143/76 Exam Gen: A/O x3 pleasantly cantankerous elderly woman in NAD Neck: Supple, non tender, no thyromegaly, no JVD HEENT: PERRL, EOMI, no scleral icterus, no conjunctival pallor CV: RRR, no murmurs rubs or gallops Resp: Coarse rhoncorous breath sounds heard throughout Abd: Soft, non tender, no organomegaly, no rebound or guarding Extr: No cyanosis clubbing or edema Neuro: CN 2-12 grossly intact, no focal neurologic deficit. IVs and Medications IV Fluids 50 ml NS delivered with IV meds Medications Reviewed: Medications were reviewed in detail Lab and Diagnostics Item Value Date Time Red Blood Count 4.18 mil/mm3 11/02/16 0645 Mean Corpuscular Volume 101.7 fL H 11/02/16 0645 Mean Corpuscular Hemoglobin 29.9 pg 11/02/16 0645 Mean Corpuscular Hemoglobin Concent 29.4 % L 11/02/16 0645 Red Cell Distribution Width 15.1 % 11/02/16 0645 Neutrophils (%) (Auto) 88.7 % H 11/02/16 0645 Lymphocytes (%) (Auto) 9.3 % L 11/02/16 0645 Monocytes (%) (Auto) 1.9 % L 11/02/16 0645 Eosinophils (%) (Auto) 0 % 11/02/16 0645 Basophils (%) (Auto) 0 % 11/02/16 0645 Estimat Glomerular Filtration Rate 216 mL/min 11/02/16 0645 Calcium Level 9.2 mg/dL 11/02/16 0645 Total Bilirubin 0.2 mg/dL 11/02/16 0645 Aspartate Amino Transf (AST/SGOT) 15 U/L 11/02/16 0645 Alanine Aminotransferase (ALT/SGPT) 9 U/L 11/02/16 0645 Alkaline Phosphatase 51 U/L 11/02/16 0645 Total Protein 6.2 g/dL L 11/02/16 0645 Albumin 3.5 g/dL 11/02/16 06 Result Diagram: 11/02/16 0645 11/02/16644 Microbiology Blood culture pending X-Rays, CTs and MRIs X-RAY CHEST ONE VIEW, PORTABLE IMPRESSION: 1. Bilateral infrahilar bandlike opacities consistent with atelectasis, developing consolidation, or aspiration. 2. Mild pulmonary edema. Dictated by: Scooby Lima M.D. on 11/01/2016 at 20:55 Approved by: Scooby Lima M.D. on 11/01/2016 at 20:57 CT CERVICAL SPINE WITHOUT CONTRAST IMPRESSION: 1. No acute fractures in the cervical spine. 2. Multilevel spondylolisthesis likely degenerative in etiology. 3. Mild anterior compression deformity of the T6 vertebral body of indeterminate acuity but new compared to the prior CT study of 11/07/10. No retropulsed bony fragments. 4. Multilevel degenerative changes throughout the cervical spine. Dictated by: Scooby Lima M.D. on 11/01/2016 at 21:14 Approved by: Scooby Lima M.D. on 11/01/2016 at 21:20 CT BRAIN WITHOUT CONTRAST IMPRESSION: 1. No acute intracranial abnormality. 2. Mild cerebral volume loss and chronic white matter small ischemic changes. Dictated by: Scooby Lima M.D. on 11/01/2016 at 21:12 Approved by: Scooby Lima M.D. on 11/01/2016 at 21:13 Additional Diagnostics VBG DateTimeAnalyzed 21:54:00 -_ pH ____7.336 - pCO2 ___79.3__ -mmHg pO2 ___49.5__ -mmHg HCO3- ___41.3__ -mmol/L ABE ___12.5__ -mmol/L tHb ___12.4__ -g/dL O2Hb ___80.2__ -% COHb ____4.8__ -% MetHb ____0.9__ -% sO2 ___85.1__ -% FIO2 ___21.0__ -% Drawn By LT - Date/Time Notified____ 21:59:00 -_ Notified Whom ___DR. MANUEL - B 757 -mmHg tO2 ___14.0__ -Vol% Pablo test N/A - Assessment & Plan Mrs. Ureña is a 76 year-old female with a history of COPD who continues to smoke (since she was a teenager), hypercholesterolemia, and hypertension who was brought to the ED due to altered level of consciousness. The patient appears to have made significant improvement compared to reports of respiratory function and mentation upon arrival. Acute hypercarbic hypoxemic respiratory failure, POA, likely acute on chronic. Active -PCO2 79.3, PaO2 49.5. -Secondary to acute COPD exacerbation -Treatment as below -Likely secondary to medication and oxygen non-compliance Acute on chronic COPD exacerbation, present on admission. Active -Secondary to nonadherence to medical treatment - Reviewed records from previous admission for COPD -Continue home medications and nebulizers -Solu-Medrol given in the ER, continue Oral Prednisone 40mg daily for 5 days ( ending 11/07/16) -Azithromycin as above -BiPAP as needed for hypercarbia -Titrate nasal O2 to a SPO2 88-92% -DuoNeb's as needed -Home umeclidinium/Vilanterol Scheduled daily. Acute community-acquired pneumonia, present on admission. Active -Bilateral infrahilar opacities, developing consolidation, possible aspiration on radiography. Hypoxemia. -Sputum cultures, Legionella and strep pneumo urine antigen negative to date -Ceftriaxone 2g IV daily plus azithromycin 500mg Oral Daily. -MRSA rapid screen -Swallow eval. Acute encephalopathy, present on admission. Improving -Most likely secondary to hypercarbia, VBG serum CO2=79 -Symptoms are synonymous to previous admission in May of this year, workup for hepatic encephalopathy, drug induced encephalopathy was negative. -Head CT negative for acute hemorrhagic stroke, reviewed by admitting team -Repeat ABG now, if remains hypercapnic move to PCC status and placed on BiPAP AAA, present on Admission, POA, chronic. Active - Presumed Stable. Tobacco abuse - Nicotine patches. - Discussed tobacco cessation with patient. Hyperlipidemia - Continue Lovastatin - Acetaminophen as needed for mild pain/fever/headache - Bowel regimen as needed - Antiemetic as needed Disposition: Assuming patient can maintain currently trajectory of recovery she will likely be able to DC home tomorrow. Pain Evaluation: Adequate Pain Control GI Prophylaxis: Not indicated VTE Prophylaxis: Sub-Q Heparin (Unfractionated) Resuscitation Status: DNR/DNI:Do Not Resuscitate/Intubate Limited Interventions: BiPAP Attending Statement The patient was seen and examined together with Dr. Reddy on 11/02/2016 and I agree with the history, exam and plan as outlined in the note above. . Sahil Reddy DO Nov 02, 2016 14:33 Tong Jacob MD Nov 03, 2016 07:30
--- NOTE | 2016-11-02 15:36 | NUR ---
Evaluation completed. Please go to "Notes" then click on "Assessments and Notes" (bottom left corner of screen). Then select appropriate discipline tab on top of screen.
--- NOTE | 2016-11-02 15:44 | NUR ---
Mentation Pt alert and oriented. SpO2 88-91% on 1L NC. Tolerating heart healthy diet. Voids per BSC, SBA. Loose cough, non-productive.
[2016-11-03 00:26] VITALS: PULSE 76; RESP 16; O2SAT 90
[2016-11-03] MEDS: Albuterol-Ipratropium 3 mL Inhalation Solution NEB SCH ×4 (00:26→11:29)
[2016-11-03 03:17] LABS: BASOPHILS % (AUTO) 0.1 % (0-3); EOSINOPHILS % (AUTO) 0.1 % (0-5); MONOCYTES % (AUTO) 12.4 % (4-12); Mean Corpuscular Hemoglobin 29.6 pg (27.0-35.0); Mean Corpuscular Volume 98.2 fL (81-100); NEUTROPHILS % (AUTO) 67.5 % (40-74); Platelet Count 242 bil/L (150-400)
[2016-11-03 03:45] LABS: Magnesium 1.8 mg/dL (1.6-2.6); Phosphorus 3.9 mg/dL (2.5-4.9)
[2016-11-03 04:20] VITALS: BP 123/70; PULSE 78; RESP 16; O2SAT 96
[2016-11-03 04:23] VITALS: PULSE 84; RESP 18; O2SAT 93
[2016-11-03] MEDS: 0.9% Sodium Chloride 1,000 ML IV SCH (06:20)
[2016-11-03] MEDS: Pantoprazole 40 mg ER24 Tablet PO SCH (06:28)
[2016-11-03] MEDS: cefTRIAXone Inj 2,000 MG in Dextrose 5% Minibag Plus 50 ML IV SCH (06:28)
--- NOTE | 2016-11-03 07:20 | NUR ---
Respiratory Pt denies SOB. On 1L via NC. SPO2 appropriate. VSS. No overt complications noted. [id number] at the bedside overnight providing support and comfort.
[2016-11-03] MEDS: Arformoterol 15 mCg/2 mL Inhalation Solution NEB SCH (07:35)
[2016-11-03 07:36] VITALS: PULSE 80; RESP 20; O2SAT 90
[2016-11-03] MEDS: predniSONE 20 mg Tablet PO SCH (08:23)
[2016-11-03] MEDS: Heparin 5,000 Unit/mL Inj SUBQ SCH (08:23)
--- NOTE | 2016-11-03 08:30 | NUR ---
Social Work Note: Initial Assessment Data& Assessment: EMR reviewed. SW met with pt and pt puja Moreland at bedside to discuss discharge planning and assess for any unmet needs, SW role explained. Shanel Ureña is a 76 year old female under observation for dyspnea and COPD exacerbation. Pt has Medicare and [employer] supplemental insurance coverage. Pt sees Felix Knott MD for primary care. Pt livers in [place] with family and uses a wheelchair at baseline. Pt is normally able to transfer independently. Pt wears 2-3L of oxygen at baseline through [employer]. Pt does not have HH or SNF hx. Pt does not have LTC insurance or VA benefits. Pt has DPOA/Advance Directive paperwork completed, SW requested a copy when possible. Pt and pt family denies any needs at this time. SW to continue to follow if any needs arise. Plan: Anticipated discharge home via POV when medically ready.Pt and pt family denies any needs at this time. SW to continue to follow if any needs arise. LACEY Pena Addendum: 11/03/16 at 0837 by AGUSTO KLEIN Amended: Links added.
--- NOTE | 2016-11-03 09:05 | PCM.DIMED ---
Sahil Reddy 11/03/16 0905: Discharge Instructions Date of Service Nov 03, 2016 Dates of Hospitalization Nov 01, 2016 at 23:58 Discharge Diagnosis Discharge Diagnosis Acute hypercarbic hypoxemic respiratory failure, POA, likely acute on chronic. Active: Your breathing problems that you had coming in were most likely related to not quite using your medication and oxygen as consistently as is necessary to keep your shortness of breath in check. As always, we cannot stress highly enough the you must STOP SMOKING, otherwise your lung disease will continue to get worse which will greatly affect your quality of life. Acute on chronic COPD exacerbation, present on admission. Active: As above, please talk with your primary care doctor about smoking, medicine will only go so far as long as you continue to smoke. I have included in your discharge paperwork a prescription for 4 more days of Prednisone to help reduce the swelling in your airway. Please take this medication once per day starting tomorrow. Acute encephalopathy, present on admission. Improving: This just means that when you came in you were a little confused, this was due to your brain not getting enough oxygen. You improved very well using essentially you home medications and oxygen as well as not smoking for a couple days. This goes to show that if you use your medication and oxygen as directed, and stop smoking you can likely avoid a lot of these problems in the future. Tobacco abuse: STOP SMOKING, please follow up with your primary care provider about what resources are available to you. Hyperlipidemia: Continue to take your Statin as directed. Medication Instructions Additional med instructions I have included in your discharge paperwork a prescription for 4 more days of Prednisone to help reduce the swelling in your airway, I have also included a prescription for another 4 days of the antibiotic Azithromycin. You have already gotten a dose of each today so please take these medications once per day starting tomorrow. Diet Discharge Diet: Heart Healthy Activity Discharge Activity: Limited until seen by PCP (Balance rest and activity. ) Call your provider Call your provider for: Fever or Chills, Shortness of breath, Bleeding, Chest pain, Vomitting, Excessive diarrhea, Weakness (unilateral) Patient Instructions Patient Instructions STOP SMOKING, call [phone], and talk to your primary care doctor about what resources are available to you. Follow-up plan Follow up with Dr. Knott within 1 weeks to discuss this admission. Follow-up Provider: Felix Knott MD Follow-up with PCP in: 1 week Tong Jacob MD 11/04/16 1645: Discharge Instructions Attending's Statement The patient was seen and examined together with Dr. Reddy on 11/03/2016 and I agree with the history, exam and plan as outlined in the note above. . Sahil Reddy DO Nov 03, 2016 09:05 Tong Jacob MD Nov 04, 2016 16:45
[2016-11-03] MEDS ORDERED: PRED-508 PO (09:06)
[2016-11-03] MEDS ORDERED: ZIT250 PO (10:43)
[2016-11-03 11:29] VITALS: PULSE 89; RESP 20; O2SAT 91
--- NOTE | 2016-11-03 11:42 | PCM.DC.MED ---
Discharge Summary Date of Service Nov 03, 2016 Dates of Hospitalization Date of Hospital Admission Nov 01, 2016 at 23:58 Date of Discharge: Nov 03, 2016 Providers: Admitting Physician: hCristine Ledezma DO Primary Care Physician: Felix Knott MD Attending Physician: Christine Ledezma DO Diagnosis at Time of Discharge Diagnosis at Time of Discharge Acute hypercarbic hypoxemic respiratory failure, POA, likely acute on chronic. Active Acute on chronic COPD exacerbation, present on admission. Active Acute community-acquired pneumonia, present on admission. Active Acute encephalopathy, present on admission. Improving AAA, present on Admission, POA, chronic. Active Tobacco abuse Hyperlipidemia . Procedures XRay, CTs & MRIs X-RAY CHEST ONE VIEW, PORTABLE IMPRESSION: 1. Bilateral infrahilar bandlike opacities consistent with atelectasis, developing consolidation, or aspiration. 2. Mild pulmonary edema. Dictated by: Scooby Lima M.D. on 11/01/2016 at 20:55 Approved by: Scooby Lima M.D. on 11/01/2016 at 20:57 CT CERVICAL SPINE WITHOUT CONTRAST IMPRESSION: 1. No acute fractures in the cervical spine. 2. Multilevel spondylolisthesis likely degenerative in etiology. 3. Mild anterior compression deformity of the T6 vertebral body of indeterminate acuity but new compared to the prior CT study of 11/07/10. No retropulsed bony fragments. 4. Multilevel degenerative changes throughout the cervical spine. Dictated by: Scooby Lima M.D. on 11/01/2016 at 21:14 Approved by: Scooby Lima M.D. on 11/01/2016 at 21:20 CT BRAIN WITHOUT CONTRAST IMPRESSION: 1. No acute intracranial abnormality. 2. Mild cerebral volume loss and chronic white matter small ischemic changes. Dictated by: Scooby Lima M.D. on 11/01/2016 at 21:12 Approved by: Scooby Lima M.D. on 11/01/2016 at 21:13 Brief History Taken from History and Physical composed by Dr. Thomas on 11/02/16 Sahnel Ureña is an 76-year-old woman with history of COPD and hypertension on home oxygen who presented to the emergency department today by EMS for evaluation of altered level of mentation. Patient's family conveys a store that she had been r refusing to wear her home oxygen, showing clear signs of decreased mentation. Reportedly, she became combative and oxygen saturation was found to be in the high 60s low 70s during the event. Several hours later she came to the emergency department where condition did not improve and she was below baseline. Patient has no complaints at bedside, ROS ordonez negative, she still shows evidence of being altered, i.e. not knowing the year, where she has, or why she is here. Denies recent ill contacts. In the emergency department: Initial vitals were temperature of 36.9 Celsius, pulse 97, respiratory rate 20, blood pressure 148/66, pulse ox 81% on room air. She was placed on 3 L nasal cannula, and her O2 saturation improved to the mid 90s. CBC showed mild leukocytosis at 10,200 white blood cells, left shift 89% neutrophils, macrocytosis MCV 102.6 with no anemia, serum bicarbonate 37 on CMP , troponin was negative, Procalcitonin 0.02 liver function is normal, creatinine 0.45. Urinalysis was negative for infection. Chest x-ray showed bilateral infrahilar bandlike opacities consistent with atelectasis, developing consolidation, or aspiration. Mild pulmonary edema. EKG showed sinus rhythm, "probable left atrial enlargement" heart rate of 84, QTC 413, normal axis, no signs of acute ischemia or infarction. . Hospital Course Mrs. Ureña is a 76 year-old female with a history of COPD who continues to smoke (since she was a teenager), hypercholesterolemia, and hypertension who was brought to the ED due to altered level of consciousness. Per her report and daughter she is only intermittently compliant with her home meds and oxygent, and continues to smoke daily. The patient appears to have made significant improvement compared to reports of respiratory function and mentation upon arrival. Some pulmonary dysfunction remains, but she is very near to baseline and we are only utilizing her home meds, thus the patient was discharged with instructions for close follow up and medication adherence. The patient may benefit from nebulized breathing treatment as an outpatient as she appears to respond well to this therapy in the hospital, however the degree to which that reflects the efficacy of this medication versus her degree of home noncompliance is uncertain. For complete hospital course see below. Acute hypercarbic hypoxemic respiratory failure, POA, likely acute on chronic. Active -PCO2 79.3, PaO2 49.5. -Secondary to acute COPD exacerbation -Treatment as below -Likely secondary to medication and oxygen non-compliance Acute on chronic COPD exacerbation, present on admission. Active -Secondary to nonadherence to medical treatment -Reviewed records from previous admission for COPD -Continued home medications in nebulized form nebulizers -Solu-Medrol given in the ER, continue Oral Prednisone 40mg daily for 5 days ( ending 11/07/16) -Azithromycin to be continue for a 5 day course as an outpatient -BiPAP as needed for hypercarbia -Titrated nasal O2 to a SPO2 88-92% -DuoNeb's as needed -Home umeclidinium/Vilanterol Scheduled daily. Acute community-acquired pneumonia, present on admission. Active -Bilateral infrahilar opacities, developing consolidation, possible aspiration on radiography. Hypoxemia. -Sputum cultures, Legionella and strep pneumo urine antigen negative to date -Ceftriaxone 2g IV daily plus azithromycin 500mg Oral Daily. -Azithromycin continued upon DC -MRSA rapid screen Acute encephalopathy, present on admission. Improving -Most likely secondary to hypercarbia, VBG serum CO2=79 -Symptoms are very similar to previous admission in May of this year, workup for hepatic encephalopathy, drug induced encephalopathy was negative. -Head CT negative for acute hemorrhagic stroke, reviewed by admitting team AAA, present on Admission, POA, chronic. Active - Presumed Stable. Tobacco abuse - Nicotine patches. - Discussed tobacco cessation with patient. Hyperlipidemia - Continue Lovastatin . Exam Vital Signs (Last) Date Time Temp Pulse Resp B/P Pulse Ox O2 Delivery O2 Flow Rate FiO2 11/03/16 08:40 Supplement Oxygen 11/03/16 07:36 80 20 90 1.00 11/03/16 04:20 36.6 123/70 Exam Gen: A/O x3 pleasantly cantankerous elderly woman in NAD Neck: Supple, non tender, no thyromegaly, no JVD HEENT: PERRL, EOMI, no scleral icterus, no conjunctival pallor CV: RRR, no murmurs rubs or gallops Resp: Coarse rhoncorous breath sounds heard throughout, improved since prior exam Abd: Soft, non tender, no organomegaly, no rebound or guarding Extr: No cyanosis clubbing or edema Neuro: CN 2-12 grossly intact, no focal neurologic deficit. Test 6/11/17 18:20 11/01/16 19:04 11/01/16 20:35 11/02/16 07:50 Troponin T < 0.010ug/L (0.0-0.011) Hold Judge Top Tube Received (Received) Urine Color Yellow (YELLOW) Urine Appearance Cloudy (CLEAR,HAZY) Urine pH 7.5 (5.0-8.0) Urine Specific [place] 1.010 (1.003-1.035) Urine Protein Negativemg/dL (NEG,TRACE) Urine Glucose (UA) Negativemg/dL (NEGATIVE) Urine Ketones Negativemg/dL (NEGATIVE) Urine Occult Blood Negative (NEGATIVE) Urine Nitrite Negative (NEGATIVE) Urine Bilirubin Negative (NEGATIVE) Urine Urobilinogen Normalmg/dL (NORMAL) Urine Leukocyte Esterase Negative (NEGATIVE) Urine RBC 0-2/hpf (0-2) Urine WBC 0-5/hpf (0-5) Urine Epithelial Cells Few/hpf (NONE-MOD) Urine Crystals Amorphous urates (NONE Urine Bacteria Few/hpf (NONE-FEW) Urine Hyaline Casts None/lpf (NONE) Urine Granular Casts None seen (NONE SEEN) Urine Waxy Casts None seen (NONE SEEN) Urine Red Blood Cell Casts None seen (NONE SEEN) Urine White Blood Cell Casts None seen (NONE SEEN) Urine Mucus None seen (None Seen) Urine Trichomonas None seen (NONE SEEN) Urine Yeast None (NONE SEEN) Urinalysis Comment None Urine Culture Reflexed Not indicated Urine Legionella pneumophilia Ag Negative (Negative) Hold Urine Received (Received) Test 11/03/16 02:35 White Blood Count 10.5th/mm3 (3.8-10.1) Red Blood Count 3.89mil/mm3 (3.90-5.20) Hemoglobin 11.5g/dL (12.0-15.6) Hematocrit 38.2% (35.0-46.0) Mean Corpuscular Volume 98.2fL (81-100) Mean Corpuscular Hemoglobin 29.6pg (27.0-35.0) Mean Corpuscular Hemoglobin Concent 30.1% (32.0-37.0) Red Cell Distribution Width 15.2% (12.3-15.4) Platelet Count 242bil/L (150-400) Neutrophils (%) (Auto) 67.5% (40-74) Lymphocytes (%) (Auto) 19.7% (14-46) Monocytes (%) (Auto) 12.4% (4-12) Eosinophils (%) (Auto) 0.1% (0-5) Basophils (%) (Auto) 0.1% (0-3) Prothrombin Time 10.7sec (8.1-12.5) Prothromb Time International Ratio 1.00ratio Sodium Level 138mEq/L (134-144) Potassium Level 4.4mEq/L (3.5-5.2) Chloride Level 96mEq/L (97-108) Carbon Dioxide Level 35mmol/L (18-29) Blood Urea Nitrogen 17mg/dL (8-27) Creatinine 0.47mg/dL (0.57-1.00) Estimat Glomerular Filtration Rate 185mL/min (>59) Glucose Level 87mg/dL (60-99) Calcium Level 9.2mg/dL (8.5-10.1) Phosphorus Level 3.9mg/dL (2.5-4.9) Magnesium Level 1.8mg/dL (1.6-2.6) Total Bilirubin 0.3mg/dL (0.0-1.2) Aspartate Amino Transf (AST/SGOT) 17U/L (0-50) Alanine Aminotransferase (ALT/SGPT) 9U/L (0-32) Alkaline Phosphatase 43U/L (25-165) Total Protein 5.7g/dL (6.4-8.4) Albumin 3.1g/dL (3.4-5.0) Procalcitonin 0.04ng/mL (0.00-0.08) Microbiology Results Blood culture pending Discharge Medications Discharge Medications Azithromycin (Zithromax) 250 Mg Tablet 250 MG PO DAILY Prescribed by: ANAID REDDY DO Lisinopril (Lisinopril) 10 Mg Tablet 10 MG PO QAM (Reported) Lovastatin (Lovastatin) 20 Mg Tablet 20 MG PO HS (Reported) Nicotine 21 mg/24 hr Patch (Nicotine 21 mg/24 hr Patch) 1 Each Patch.dysq 1 PATCH TRANSDERM DAILY (Reported) Omeprazole (Omeprazole) 20 Mg Capsule.dr 20 MG PO QAM (Reported) Prednisone (Deltasone) 20 Mg Tablet 40 MG PO DAILY Prescribed by: ANAID REDDY DO Ranitidine (Ranitidine) 150 Mg Capsule 150 MG PO BIDWM (Reported) Umeclidinium Brm/Vilanterol Tr (Anoro Ellipta 62.5-25 Mcg INH) 1 Each Disk.w.dev 1 EACH IH DAILY Prescribed by: JAMIR HUSSEIN DO As needed Zolpidem (Zolpidem) 5 Mg Tablet 5 MG PO HS PRN PRN For Insomnia (Reported) Additional med instructions I have included in your discharge paperwork a prescription for 4 more days of Prednisone to help reduce the swelling in your airway, I have also included a prescription for another 4 days of the antibiotic Azithromycin. You have already gotten a dose of each today so please take these medications once per day starting tomorrow. Followup Plan Disposition: Home Follow-up plan Follow up with Dr. Knott within 1 weeks to discuss this admission. Discharge Diet: Heart Healthy Discharge Activity: Limited until seen by PCP (Balance rest and activity. ) Patient Instructions STOP SMOKING, call [phone], and talk to your primary care doctor about what resources are available to you. Follow-up Provider: Felix Knott MD Follow-up with PCP in: 1 week Time spent Greater than 30 minutes was spent in preparation of discharge with greater than 50% of that time dedicated to patient counseling and coordination of care. . Attending Statement The patient was seen and examined together with Dr. Redyd on 11/03/2016 and I agree with the history, exam and plan as outlined in the note above. . copies to: Felix Knott MD, David E DO Nov 03, 2016 11:42 Tong Jacob MD Nov 04, 2016 16:45
--- NOTE | 2016-11-03 12:32 | NUR ---
discharge/hygiene Discharge orders received. Pts lin Reyna contacted and will be here shortly to pick her up. Pt refusing all hygiene care even though her skin is dry, she is malodorous, and her hair is caky with oil. Multiple offers/attempts to get pt to bed bath or shower. Pt did agree to put on clean pants. Addendum: 11/03/16 at 1315 by NAHOMY PARISI RN 1300 pt wheeled out. Pt did not bring her own o2 compressor, opts to go home on room air. Pt did not want to wait. All dc instructions reviewed with lin reyna and pt.
--- NOTE | 2016-11-03 13:46 | NUR ---
Social Work Note: Discharge Data& Assessment: Per , pt is medically ready for discharge. SW met with pt at bedside to confirm discharge plan and assess for any unmet needs. Shanel Ureña is a 76 year old female admitted on 11/01/2016 for dyspnea and COPD exacerbation. Per pt is medically stable and ready to discharge home via POV. Pt confirmed plan to discharge home with family today. Pt son transporting pt home. Pt denies any other needs. No other discharge needs identified. Plan: Per , pt is medically ready for discharge. Pt denies any other needs. No other discharge needs identified. LACEY Pena
== END 2016-11-03 13:20 | disposition home or self-care (01) | DRG 190 ==
LOC: EDBD 17:54 → EDUNIT# 17:54 → SED 17:54 → MPC 23:58 → OBSVTOIN 23:58 → PCC 11-02 03:41
PROVIDERS: ADMIT Internal Medicine; ATTEND Internal Medicine
PROC: 4A033R1 Measurement of Arterial Saturation, Peripheral, Percutaneous Approach (ICD-10-PCS; principal; 2016-11-01)
DX: J44.0 Chronic obstructive pulmonary disease with (acute) lower respiratory infection (principal); J18.9 Pneumonia, unspecified organism; J96.21 Acute and chronic respiratory failure with hypoxia; J96.22 Acute and chronic respiratory failure with hypercapnia; G93.40 Encephalopathy, unspecified; J44.1 Chronic obstructive pulmonary disease with (acute) exacerbation; I71.4 Abdominal aortic aneurysm, without rupture; E78.5 Hyperlipidemia, unspecified; I10 Essential (primary) hypertension; F17.210 Nicotine dependence, cigarettes, uncomplicated; Z99.81 Dependence on supplemental oxygen; Z66 Do not resuscitate

== ENCOUNTER 2016-12-10 14:00 | Inpatient (IN) | payer MEDICARE ==
[2016-12-10] VITALS (7 sets, daily range): BP systolic 108–122; BP diastolic 61–81; PULSE 72–83; RESP 16–26; O2SAT 88–98
[~2016-12-10] VITALS: Ht 157.5 cm; Wt 65.2 kg
[~2016-12-10 14:00] MED LIST changes: -ATOR20TA PO; +LOVA20TA PO; +NICO1PAT16 TRANSDERM; -NICO1PAT6 TOPICAL; +OMEP20CA11 PO; +ZIT250 PO; +ZOLP5TAB6 PO
[2016-12-10] MEDS ORDERED: MethylprednisoLONE Sodium Succinate 62.5 mg/mL 2 mL Inj IVPUSH ONE (14:30)
--- NOTE | 2016-12-10 14:36 | ED.REPORT ---
HPI-Dyspnea / Wheezing Date of Service Dec 10, 2016 ED Provider: Jennifer Hardin MD 76 y/o female with a hx of COPD and hypertension on 2 L of home oxygen is brought to the ED via EMS complaining of worsening shortness of breath for the last 4 days. The pt's stat is typically in the low 80s but today her son recorded it in 70s. She has been tripodding at night and asked to be taken to the hospital today which is atypical of her. Associated sx include coughing. generalized weakness, mild confusion and increased lower extremity edema. Nursing Notes Stated Complaint: SOB Chief Complaint: Respiratory Complaints Nursing Notes Reviewed: Yes Allergies: Coded Allergies: No Known Allergies (Unverified , 12/10/16) Scheduled Azithromycin (Zithromax) 250 Mg Tablet 250 MG PO DAILY Lisinopril (Lisinopril) 10 Mg Tablet 10 MG PO QAM Lovastatin (Lovastatin) 20 Mg Tablet 20 MG PO HS Nicotine 21 mg/24 hr Patch (Nicotine 21 mg/24 hr Patch) 1 Each Patch.dysq 1 PATCH TRANSDERM DAILY Omeprazole (Omeprazole) 20 Mg Capsule.dr 20 MG PO QAM Prednisone (Deltasone) 20 Mg Tablet 40 MG PO DAILY Ranitidine (Ranitidine) 150 Mg Capsule 150 MG PO BIDWM Umeclidinium Brm/Vilanterol Tr (Anoro Ellipta 62.5-25 Mcg INH) 1 Each Disk.w.dev 1 EACH IH DAILY Scheduled PRN Zolpidem (Zolpidem) 5 Mg Tablet 5 MG PO HS PRN PRN For Insomnia General Time Seen by MD: 13:58 Chief Complaint Shortness of breath Hx Obtained From: Patient, EMS Arrived By: Ambulance Sudden in Onset?: No Onset Occurred: 4 days ago Symptom Duration: Since onset Severity: Current: No pain currently Severity: Maximum: No pain Recent Healthcare: Recent doctor visit, Recent hospitalization Similar Sx Previous: Yes Past Medical History Past Medical History COPD on 2lNC Hypercholesterolemia PFTs at [facility] 10/2015 4.3 cm AAA, fairly stable Reports: Hypertension Past Surgical History Spinal fusion 20 years ago Knee surgery Smoking History Current Every Day Smoker Social History Alcohol Use: Denies alcohol use Drug Use: Denies drug use Ambulatory Status Independent Review of Systems Constitutional: Reports: Weakness - generalized Respiratory: Reports: Non-productive cough, Shortness of breath Cardiovascular: Reports: Edema Complete sys rev & neg: except as marked. Neurologic: Reports: Confusion Physical Exam Initial Vital Signs Vital Signs (First) Date Time Temp Pulse Resp B/P Pulse Ox O2 Delivery O2 Flow Rate FiO2 12/10/16 14:07 37.1 82 26 122/81 96 Nasal Cannula 1 Initial VS: Reviewed Head / Eyes: Atraumatic, Normocephalic Abdomen / GI: Soft, Non-tender, No guarding, No rebound, No distention Extremities: Vascular intact, Neuro intact, No swelling, No tenderness Skin: Warm, Dry, No cyanosis Neurologic: Alert, Oriented, Nonfocal General/Constitutional: Awake, Alert, Cooperative Neck: Atraumatic, Supple, Full range of motion Respiratory / Chest: Atraumatic, No rales, No wheezing Rales / Rhonchi: Positive: Rhonchi diffuse (inspiratory and expiratory) Cardiovascular: Heart rate NL, Regular rhythm, Heart sounds NL, No gallop, No murmurs, No rubs Interpretation & Diagnostics Lab Results Interpretation Result Diagram: 12/10/16 1433 12/10/16 1433 Test 12/10/16 14:33 White Blood Count 12.7th/mm3 (3.8-10.1) Red Blood Count 4.42mil/mm3 (3.90-5.20) Hemoglobin 13.6g/dL (12.0-15.6) Hematocrit 45.3% (35.0-46.0) Mean Corpuscular Volume 102.5fL (81-100) Mean Corpuscular Hemoglobin 30.8pg (27.0-35.0) Mean Corpuscular Hemoglobin Concent 30.0% (32.0-37.0) Red Cell Distribution Width 16.8% (12.3-15.4) Platelet Count 269bil/L (150-400) Neutrophils (%) (Auto) 79.8% (40-74) Lymphocytes (%) (Auto) 12.8% (14-46) Monocytes (%) (Auto) 7.0% (4-12) Eosinophils (%) (Auto) 0% (0-5) Basophils (%) (Auto) 0.2% (0-3) Sodium Level 143mEq/L (134-144) Potassium Level 4.1mEq/L (3.5-5.2) Chloride Level 94mEq/L (97-108) Carbon Dioxide Level 37mmol/L (18-29) Blood Urea Nitrogen 23mg/dL (8-27) Creatinine 0.48mg/dL (0.57-1.00) Estimat Glomerular Filtration Rate 180mL/min (>59) Glucose Level 94mg/dL (60-99) Calcium Level 10.5mg/dL (8.5-10.1) Total Bilirubin 0.3mg/dL (0.0-1.2) Aspartate Amino Transf (AST/SGOT) 21U/L (0-50) Alanine Aminotransferase (ALT/SGPT) 14U/L (0-32) Alkaline Phosphatase 59U/L (25-165) Pro-B-Type Natriuretic Peptide 2445pg/mL (0-738) Total Protein 6.8g/dL (6.4-8.4) Albumin 3.9g/dL (3.4-5.0) ECG Interpretation ECG Interpretation: Normal sinus rhythm. Rate 78. ST changes at V3-V6 inversion Borderline T abnormalities, diffuse leads. Time: 14:03 Interpreted by: ED physician X-Ray Chest Interpretation Chest Xray Interpretation: IMPRESSION: 1. Chronic interstitial prominence suggests chronic interstitial lung disease. 2. Left basilar scar or atelectasis. Dictated by: Elinor Santacruz M.D. on 12/10/2016 at 15:18 Approved by: Elinor Santacruz M.D. on 12/10/2016 at 15:20 View: Portable, 1 view Interpretation / Wet Read by: Interpret - Radiologist Re-Eval/Medical Decision Med Decision/Clinical Course 76-year-old female presents the emergency department with COPD exacerbation with hypoxia at home. Patient was reportedly in respiratory distress on EMS arrival but improved rapidly with oxygen administration as well as nebulizer treatment. In the emergency department she is well-appearing with no complaints. She denies recent chest pain but has quite an elevated troponin consistent with NSTEMI. She does have risk factors for coronary artery disease as well. She was started on a heparin drip and administered an aspirin, her case was discussed with hospitalist who agrees to admit. A cardiology consult was put out, however due to acuity of STEMI patients at the time of her admission her cardiology consult was pending, and will be taken care of by the hospitalist team. She was administered Solu-Medrol and nebulizer for her COPD exacerbation, her chest x-ray did not show acute infiltrate. Source of Hx: Old records Re-Evaluation/Progress : Time of Eval: 16:18 Re-Evaluation/Progress Note: Rechecked pt. Discussed lab results, imaging results, diagnosis and plan to admit. Pt understands and agrees with the plan for admission. All questions addressed. Consultation : Referral / Consult Name: Rashad Bone DO Call Returned at: 16:24 Package Lift Operator: Will see patient, Agrees with eval, Agrees with plan, Accepts admit Counseled Regarding: Diagnosis, Lab results, Need for admission Discharge & Departure Impression: Primary Impression: NSTEMI (non-ST elevated myocardial infarction) Additional Impression: COPD (chronic obstructive pulmonary disease) Disposition: ADMITTED TO HOSPITAL Discharge Condition All VS Reviewed: Yes Referrals: Felix Knott MD (PCP) Scribe Attestation Portions of this note were transcribed by Alcon Dhaliwal. I,, personally performed the history, physical exam and medical decision-making;I reviewed and confirmed the accuracy of the information in the transcribed note. Signed by Linda Garcia. 12/10/16 17:48 copies to: Felix Knott MD, Sarah C MD Dec 10, 2016 14:35 Alcon Dhaliwal Dec 10, 2016 15:15
[2016-12-10 14:38] LABS: BASOPHILS % (AUTO) 0.2 % (0-3); EOSINOPHILS % (AUTO) 0 % (0-5); Mean Corpuscular Hemoglobin 30.8 pg (27.0-35.0); Mean Corpuscular Volume 102.5 fL (81-100); NEUTROPHILS % (AUTO) 79.8 % (40-74); Platelet Count 269 bil/L (150-400)
[2016-12-10] MEDS ORDERED: Heparin 25K Unit/500mL 0.45 NS 25,000 UNIT in IV Premix 1 EACH IV ONE (15:15)
[2016-12-10] MEDS ORDERED: Heparin 5,000 Unit/mL Inj IVPUSH ONE (15:15)
[2016-12-10 15:21] LABS: TROPONIN T 0.263 ug/L (0.0-0.011)
--- NOTE | 2016-12-10 15:22 | DRSVH ---
PROCEDURE: X-RAY CHEST ONE VIEW, PORTABLE ([id number]) INDICATIONS: Shortness of breath. TECHNIQUE: One view of the chest was acquired. COMPARISON: [facility], CR, CHEST 2VW, 02/11/2015, 11:14. [facility], CR, X R CHEST 1VW (PORTABLE), 05/25/2016, 19:46. [facility], CR, XR CHEST 1VW (PORTABLE), 2016, 19:20. FINDINGS: Surgical changes and devices: None. Lungs and pleura: Chronic interstitial prominence appears unchanged. No pleural effusions or pneumot horax. Left basilar opacity may be atelectasis or scarring. Mediastinum: Mediastinal contours appear normal. Heart size is normal. Bones and chest wall: No suspicious bony lesions. Overlying soft tissues appear unremarkable. IMPRESSION: 1. Chronic interstitial prominence suggests chronic interstitial lung disease. 2. Left basilar scar or atelectasis. Dictated by: Elinor Santacruz M.D. on 12/10/2016 at 15:18 Approved by: Elinor Santacruz M.D. on 12/10/2016 at 15:20
[2016-12-10] MEDS ORDERED: Alum-Mag Hydrox-Simeth 30 mL Suspension PO PRN (16:30)
[2016-12-10] MEDS ORDERED: Ondansetron 2 mg/mL 2 mL Inj IVPUSH PRN (16:30)
[2016-12-10] MEDS ORDERED: Polyethylene Glycol (PEG) 17 Gm Powder PO PRN (16:30)
[2016-12-10] MEDS ORDERED: Heparin 5,000 Unit/mL Inj SUBQ SCH (16:30)
[2016-12-10] MEDS ORDERED: Albuterol 2.5 mg/3 mL Inhalation Solution NEB PRN (17:20)
--- NOTE | 2016-12-10 17:22 | PCM.HPMED ---
Subjective Date of Service Dec 10, 2016 Primary Provider: Admitting Physician: Rashad Bone DO Primary Care Physician: Felix Knott MD Attending Physician: Rashad Bone DO Chief Complaint: Shortness of breath History of Present Illness: Shanel Verma is a 76-year-old woman with past medical history significant for end-stage COPD on 2 L home oxygen, hypertension, AAA who presented to the [facility] emergency department today via EMS due to worsening shortness of breath and altered mentation. The patient's son, who is her study specialist, is present and able to give history. Per patient's son, the patient has been progressively declining in her oxygenation over the last 3 days. Patient's son has an oximeter at home and has noticed that she dropped down into the 70s. The patient has also become progressively more obtunded over these past few days. The patient is on home oxygen 14/12 however she is noted to be a "mouth breather" and will often sleep with her mouth open while the oxygen is running saturation. Patient denies any fevers, chills, chest pain, chest pressure or nausea, diarrhea, vomiting, sick contacts, worsening sputum production. Patient does routinely make it quite a bit of sputum that is clear to white in appearance. She was also noted that she has had worsening lower extremity edema is quite new for her. Patient denies any palpitations, orthopnea, paroxysmal nocturnal dyspnea. Patient is also on chronic prednisone 20 mg daily. Patient's son is going to be in contact with hospice and has a scheduled meeting tomorrow at 1 PM. Patient has stated that she would not like any aggressive interventions including any surgical procedures or any invasive interventions. She is however okay with medications. In the Emergency department her vital signs were notable for a respiratory rate of 26 and an oxygen saturation of 96% on 1 L nasal cannula. Patient's laboratory evaluation was notable for a troponin of 0.2. She was given 125 mg of methylprednisolone as well as a full dose aspirin and initiated on heparin drip cardiac protocol. Review of Systems: A comprehensive review of systems was conducted with the patient and found to be negative except as above in the History of Present Illness. Allergies Coded Allergies: No Known Allergies (Unverified , 12/10/16) Home Medications Discharge Medications Azithromycin (Zithromax) 250 Mg Tablet 250 MG PO DAILY Lisinopril (Lisinopril) 10 Mg Tablet 10 MG PO QAM (Reported) Lovastatin (Lovastatin) 20 Mg Tablet 20 MG PO HS (Reported) Nicotine 21 mg/24 hr Patch (Nicotine 21 mg/24 hr Patch) 1 Each Patch.dysq 1 PATCH TRANSDERM DAILY (Reported) Omeprazole (Omeprazole) 20 Mg Capsule.dr 20 MG PO QAM (Reported) Prednisone (Deltasone) 20 Mg PO DAILY Ranitidine (Ranitidine) 150 Mg Capsule 150 MG PO BIDWM (Reported) Umeclidinium Brm/Vilanterol Tr (Anoro Ellipta 62.5-25 Mcg INH) 1 Each Disk.w.dev 1 EACH IH DAILY As needed Zolpidem (Zolpidem) 5 Mg Tablet 5 MG PO HS PRN PRN For Insomnia (Reported) PMH Hypertension AAA Tobacco abuse COPD Surgical History Spinal fusion greater than 20 years ago Total left knee replacement Family History Patient denies any family medical problems, no strokes, heart attacks, cancers. Unable to say why her parents passed. Social History Hx Alcohol Use: No Hx Substance Use: No Smoking Status: Current Every Day Smoker Exam Vital Signs Vital Sign - Last Date Time Temp Pulse Resp B/P Pulse Ox O2 Delivery O2 Flow Rate FiO2 12/10/16 16:09 36.7 72 20 113/61 98 Room Air 12/10/16 14:07 1 Exam General: No acute distress, elderly frail chronically ill-appearing woman lying comfortably in hospital bed HEENT: Normocephalic, atraumatic. External ears without defect. Pupils equal, round, and reactive to light and accommodation. Anicteric sclerae, moist conjunctivae, and no lid lag. Oropharynx free of erythema and cobble stoning with moist mucosa. Neck: Supple with full range of motion. No jugular venous distension.. No lymphadenopathy or thyromegaly. Cardiovascular: Regular rate and rhythm with no murmurs, rubs, or gallops appreciated Pulmonary: Diffuse inspiratory and expiratory wheeze with accompanying crackles. Normal respiratory effort with no use of accessory muscles. Abdomen: Bowel tones present. Soft, nontender, nondistended. No hepatosplenomegaly or masses appreciated. Extremities: No clubbing, cyanosis, or lymphadenopathy appreciated. Bilateral pitting lower extremity edema of the ankles. Skin: Normal temperature, turgor, and texture; no rash, ulcers, or subcutaneous nodules appreciated. Neurological: Cranial nerves grossly intact. Normal muscle strength, tone, and bulk. Reflexes, coordination, and sensory function within normal limits. No known gait impairment. Psychiatric: Normal mood and affect. Alert and oriented to person, place, and time. Lab and Diagnostics Labs Troponin 0.263 Calcium 10.5 Result Diagram: 12/10/16 1433 12/10/16 1433 X-Rays, CTs and MRIs X-RAY CHEST ONE VIEW, PORTABLE IMPRESSION: 1. Chronic interstitial prominence suggests chronic interstitial lung disease. 2. Left basilar scar or atelectasis. Dictated by: Elinor Santacruz M.D. on 12/10/2016 at 15:18 Assessment & Plan Shanel Verma is a 76-year-old woman with past medical history significant for end-stage COPD on 2 L home oxygen, hypertension, AAA who presented to the [facility] emergency department today via EMS due to worsening shortness of breath and altered mentation. Non-ST elevation [place], present on admission, active -Patient would not like any invasive procedures including coronary angiography. This was clarified with the patient and the patient's son today. -Patient would however like medical management. -Patient was initiated on a heparin drip down in the emergency department we will continue for 48 hours -We will trend troponins -Echocardiogram -Telemetry monitoring -Aspirin 81 mg, clopidogrel. -Continue statin. Acute on chronic hypoxemic hypercarbic respiratory failure secondary to COPD exacerbation, present on admission, active -She was given loading dose of steroids in the ED. Will continue with 60 mg of prednisone daily -Vital respiratory PCR -Sputum culture -Supplemental oxygen to keep O2 saturation between 8892%. -Azithromycin for 5 day course -BiPAP as needed -DuoNeb every 4 hours while awake. Albuterol every 2 hours as needed for shortness of breath -Continue home steroid inhaler -Patient is scheduled to meet with hospice tomorrow 1 PM. Chronic issues, present on admission, stable: AAA -Monitor clinically Tobacco use -Continue nicotine patches Hyperlipidemia -Continue statin CODE STATUS: DO NOT RESUSCITATE/DO NOT INTUBATE. Patient has a hospice meeting scheduled tomorrow 1 PM. Son will attempt to meet with hospice tomorrow in the hospital. Patient is admitted under inpatient status with expected length of stay greater than 2 midnights due to severity of presenting symptoms, risk of adverse event, and complexity of treatment plan. VTE Prophylaxis Indicated: Meets Criteria for Anticoag Therapy VTE Prophylaxis: Theraputic Anticoag with Warfarin Resuscitation Status: DNR/DNI:Do Not Resuscitate/Intubate Time spent 55 minutes Attending Statement I have seen and evaluated the patient at bedside in addition to directly supervising care provided by resident physician Dr Jovel. I agree with above information. Hospice informational visit will continue, likely in patient tomorrow if pt remains inpatient. She would be amenable to Bipap if needed, she has used this in the past and it does not cause any significant discomfort, but certain no more aggressive therapy such as intubation or other life supportive interventions. Iveth Zhao DO Dec 10, 2016 16:48 Rashad Bone DO Dec 11, 2016 14:00
[2016-12-10] MEDS ORDERED: Heparin 5,000 Unit/mL Inj IVPUSH PRN (17:25)
[2016-12-10] MEDS ORDERED: Heparin 25K Unit/500mL 0.45 NS 25,000 UNIT in IV Premix 1 EACH IV SCH (17:25)
[2016-12-10] MEDS: 0.9% Sodium Chloride 1,000 ML IV SCH (18:34)
--- NOTE | 2016-12-10 18:54 | NUR ---
ADMIT Admitted a 76/F into room 3003 this evening following report from Don Smith, ED RN. Pt alert with forgetfulness. Introduced to staff, bed/call light controls. Son at bedside and is pt's caregiver and providing most of the hx as pt is a poor historian. Pt on 2L via [place] which is her home sats usually run in the 80's, currently in the low 90's. Denies any SOB. Heparin gtt running upon admit at 800units/hr (16ml/hr). Pt educated on bleeding precautions. Tele placed, running NSR in the 80's per tar processing technician. Pt has not been OOB thus far. Pt is a daily smoker and requesting a patch. Bed in lowest, locked position and call light in reach.
[2016-12-10] MEDS: Albuterol-Ipratropium 3 mL Inhalation Solution NEB SCH (20:28)
[2016-12-11] VITALS (11 sets, daily range): BP systolic 104–120; BP diastolic 63–76; PULSE 66–94; RESP 17–20; O2SAT 87–96
[2016-12-11] MEDS: 0.9% Sodium Chloride 1,000 ML IV SCH ×3 (02:29→22:29)
--- NOTE | 2016-12-11 06:32 | NUR ---
Heparin PTT therapeutic all shift without active s/s bleeding noted. Denies CP on tele SR per health record technician. Currently resting in bed without any complaints.
[2016-12-11] MEDS: Albuterol-Ipratropium 3 mL Inhalation Solution NEB SCH ×4 (07:25→19:48)
[2016-12-11] MEDS: predniSONE 20 mg Tablet PO SCH (08:43)
--- NOTE | 2016-12-11 15:33 | NUR ---
Shift: VSS, a/o, tele SR 70s, O2 sats 91% on 2L NC. Up to BSC with SBA, multiple loose BMs, guaiac sent. Heparin gtt continues, PTTs therapeutic, IV leaking and d/c'd, new IV started by IV therapy. Pt has scattered bruising to both upper extremities. Family at bedside intermittently, updated on plan of care, care ongoing.
--- NOTE | 2016-12-11 16:13 | PCM.PNMED ---
Subjective Date of Service Dec 11, 2016 Subjective Note some improvement in breathing overnight, chest pain since resolved. No other acute complaints at this time. Still waiting to speak with hospice. Exam Vital Signs Vital Sign - Last Date Time Temp Pulse Resp B/P Pulse Ox O2 Delivery O2 Flow Rate FiO2 12/11/16 14:55 36.6 74 18 111/73 92 Nasal Cannula 2.00 Intake and Output 12/10/16 12/10/16 12/11/16 Cumulative From/Thru 15:00 23:00 07:00 12/10/16 14:07 - 12/10/16 18:33 Intake Total 0 ml 0 ml Output Total 0 ml 0 ml Balance 0 ml 0 ml Intake Oral 0 ml 0 ml Urine/Stool Mix 0 ml 0 ml # Voids 0 0 General: Alert, Oriented X3, Cooperative Mouth: Mucous Membr Moist/[place] Chest & Lungs: Other (diffuse inspiratory and expiratory wheezing, no consolidation are diminished airflow in the remaining lung bhatt. Coarse breath sounds diffusely. ) Abdomen: Non-tender, Non-distended Extremities: No cyanosis/clubbing/edma bilat Neurological: Grossly Neurologically Intact IVs and Medications Medications Reviewed: Medications were reviewed in detail Lab and Diagnostics Result Diagram: 12/11/16 0537 12/10/16 1433 X-Rays, CTs and MRIs X-RAY CHEST ONE VIEW, PORTABLE IMPRESSION: 1. Chronic interstitial prominence suggests chronic interstitial lung disease. 2. Left basilar scar or atelectasis. Dictated by: Elinor Santacruz M.D. on 12/10/2016 at 15:18 Assessment & Plan Shanel Verma is a 76-year-old woman with past medical history significant for end-stage COPD on 2 L home oxygen, hypertension, AAA who presented to the [facility] emergency department today via EMS due to worsening shortness of breath and altered mentation. Non-ST elevation [place], present on admission, active -Patient would not like any invasive procedures including coronary angiography. This was clarified with the patient and the patient's son today. -Patient would however like medical management. -Patient was initiated on a heparin drip down in the emergency department we will continue for 48 hours - And tingling to trend troponins, terminating marginally elevated but not upward trending -Echocardiogram results still pending -Telemetry monitoring demonstrates stable rhythm -Aspirin 81 mg, clopidogrel continued -Continue statin. Acute on chronic hypoxemic hypercarbic respiratory failure secondary to COPD exacerbation, present on admission, active -She was given loading dose of steroids in the ED. Will continue with 60 mg of prednisone daily -Vital respiratory PCR -Sputum culture -Supplemental oxygen to keep O2 saturation between 88-92%. -Azithromycin for 5 day course -BiPAP as needed -DuoNeb every 4 hours while awake. Albuterol every 2 hours as needed for shortness of breath -Continue home steroid inhaler -Hospice consultation is still pending Chronic issues, present on admission, stable: AAA -Monitor clinically - No planned interventions Tobacco use -Continue nicotine patches Hyperlipidemia -Continue statin Pain Evaluation: Adequate Pain Control VTE Prophylaxis: Other (cardiac heparin drip) Resuscitation Status: DNR/DNI:Do Not Resuscitate/Intubate Time spent 30 minutes Rashad Bone DO Dec 11, 2016 16:13
--- NOTE | 2016-12-11 16:43 | DRSVH ---
[facility] [address] [place] [address] Echocardiogram Report Name: CHANTAL LEDESMA JStudy Date: 12/11/2016 Height: 62 in Hospital Exam Location: [facility] Weight: 135 lb Gender: Female BSA: 1.6 m2 : 1940 Age: 76 yrs BP: 114/74 mmHg Reason For Study: NSTEMI Ordering Physician: HOSPITALIST [facility] Performed By: Tita Hussein [facility] Interpretation Summary Borderline concentric left ventricular hypertrophy with ejection fraction 60- 65%. Grade I diastolic dysfunction Mildly dilated right ventricle with normal systolic function. Moderately dilated right atrium. Mild mitral annular calcification. The aortic valve is mildly calcified. Mild to moderate tricuspid regurgitation. The right ventricular systolic pressure is estimated at 56 mmHg assuming a right atrial pressure of 15 mm Hg. Moderate pulmonary hypertension. Comparison is made with the echocardiogram of 05/26/2016, there has been no significant change. Procedure: A two-dimensional transthoracic echocardiogram with color flow and Doppler was performed. The study quality was technically adequate. Comparison is made with the echocardiogram of 05/26/2016. The patient was imaged in an upright position, unable to lay supine. The patient was in normal sinus rhythm during the exam. Left Ventricle: The left ventricle is normal in size. There is borderline concentric left ventricular hypertrophy. The ejection fraction is estimated to be 60-65%. There are no focal wall motion abnormalities. The E/A ratio is reversed, suggesting impaired early relaxation of the left ventricle or a reduced preload state. Right Ventricle: The right ventricle is mildly dilated. The right ventricular systolic function is normal. Atria: Borderline left atrial enlargement. The right atrium is moderately dilated. The interatrial septum is intact with no evidence for an atrial septal defect. Mitral Valve: The mitral valve leaflets appear mildly thickened, but open well. There is mild mitral annular calcification. There is trace mitral regurgitation. Aortic Valve: The aortic valve is trileaflet. The aortic valve is mildly calcified. There is trace aortic regurgitation. Tricuspid Valve: The tricuspid valve leaflets are thin and pliable. There is mild to moderate tricuspid regurgitation. The right ventricular systolic pressure is estimated at 56 mmHg assuming a right atrial pressure of 15 mm Hg. There is moderate pulmonary hypertension. Pulmonic Valve: The pulmonic valve is not well visualized. There is trace pulmonic regurgitation. Great Vessels: The aortic root is normal size. The ascending aorta could not be visualized. The IVC is dilated (diameter is greater than 2.1 cm) and it collapses less than 50% with a sniff. This suggests a high right atrial pressure of 15 mm Hg. Pericardium/ Pleura There is no pericardial effusion. There is an anterior echo-free space consistent with a fat pad. There is no pleural effusion. MMode/2D Measurements & Calculations LVIDd: 4.3 cm RA long axis LVOT diam LVIDs: 2.9 cm LA A2 area: 17.3 cm : 2.4 cm FS: 31.8 % LA A4 area: 18.8 cm RA area IVSd: 1.1 cm LA length (vol): 5.3 cm LVPWd: 1.2 cm LA vol: 52.1 ml : 21.0 cm RA vol: 69.7 ml LA vol index: 32.2 ml/m RA IVC diam: 2.5 cm : 43.1 mm2 LV belcher. diameter/BSA LV sys. diameter/BSA TAPSE: 2.6 cm (cm/m^2): 2.7 (cm/m^2): 1.8 Doppler Measurements & Calculations Ao V2 max MV E max esvin MV E/A: 0.89 TR max esvin : 135.6 cm/sec : 61.8 cm/sec Med Peak E' Esvin : 321.9 cm/sec Ao max PG MV A max esvin TR max P.6 mmHg : 7.4 mmHg : 69.3 cm/sec E/E' med: 9.3 Ao mean PG Lat Peak E' Esvin LVOT Max Esvin E/E' lat: 5.8 : 109.3 cm/sec E/e' average: 7.6 DIANDRA(I,D): 3.6 cm sev ratio MV dec time Ao V2 mean LV V1 max PG DIANDRA indexed to BSA : 0.20 sec : 99.1 cm/sec (cm^2/m^2): 2.2 Ao V2 VTI LV V1 VTI: 21.9 cm DIANDRA(V,D): 3.6 cm2 Electronically signed by: Wayne Velasquez on Reading Physician:12/11/2016 04:42 PM
[2016-12-12] VITALS (12 sets, daily range): BP systolic 107–153; BP diastolic 65–81; PULSE 64–85; RESP 17–22; O2SAT 82–98
[2016-12-12] MEDS: 0.9% Sodium Chloride 1,000 ML IV SCH (05:03)
--- NOTE | 2016-12-12 06:18 | NUR ---
SpO2 While asleep on 0.5L NC SpO2 82% when increased to 1L NC SpO2 98%. Denies SOB with hypoxia at rest. No s/s respiratory distress noted. Currently resting without any complaints.
[2016-12-12 06:28] LABS: BASOPHILS % (AUTO) 0.1 % (0-3); EOSINOPHILS % (AUTO) 0.1 % (0-5); MONOCYTES % (AUTO) 9.3 % (4-12); Mean Corpuscular Hemoglobin 29.9 pg (27.0-35.0); Mean Corpuscular Volume 102.6 fL (81-100); NEUTROPHILS % (AUTO) 69.3 % (40-74); Platelet Count 229 bil/L (150-400)
[2016-12-12] MEDS: Albuterol-Ipratropium 3 mL Inhalation Solution NEB SCH ×5 (07:39→21:31)
[2016-12-12] MEDS: predniSONE 20 mg Tablet PO SCH (08:58)
--- NOTE | 2016-12-12 09:00 | NUR ---
PAUL signed LACEY Aguilar
--- NOTE | 2016-12-12 12:40 | PCM.DC.MED ---
Discharge Summary Date of Service Dec 12, 2016 Dates of Hospitalization Date of Hospital Admission Dec 10, 2016 at 16:45 Date of Discharge: Dec 12, 2016 Providers: Admitting Physician: Rashad Bone DO Primary Care Physician: Felix Knott MD Attending Physician: Rashad Bone DO Diagnosis at Time of Discharge Diagnosis at Time of Discharge Non-ST elevation UT, present on admission, active Acute on chronic hypoxemic hypercarbic respiratory failure secondary to COPD exacerbation, present on admission, active AAA Tobacco use Hyperlipidemia Procedures XRay, CTs & MRIs X-RAY CHEST ONE VIEW, PORTABLE IMPRESSION: 1. Chronic interstitial prominence suggests chronic interstitial lung disease. 2. Left basilar scar or atelectasis. Dictated by: Elinor Santacruz M.D. on 12/10/2016 at 15:18 Brief History As per admission HPI by Dr. 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 The patient's son, who is her crewman main battle tank, is present and able to give history. Per patient's son, the patient has been progressively declining in her oxygenation over the last 3 days. Patient's son has an oximeter at home and has noticed that she dropped down into the 70s. The patient has also become progressively more obtunded over these past few days. The patient is on home oxygen / however she is noted to be a "mouth breather" and will often sleep with her mouth open while the oxygen is running saturation. Patient denies any fevers, chills, chest pain, chest pressure or nausea, diarrhea, vomiting, sick contacts, worsening sputum production. Patient does routinely make it quite a bit of sputum that is clear to white in appearance. She was also noted that she has had worsening lower extremity edema is quite new for her. Patient denies any palpitations, orthopnea, paroxysmal nocturnal dyspnea. Patient is also on chronic prednisone 20 mg daily. Patient's son is going to be in contact with hospice and has a scheduled meeting tomorrow at 1 PM. Patient has stated that she would not like any aggressive interventions including any surgical procedures or any invasive interventions. She is however okay with medications. In the Emergency department her vital signs were notable for a respiratory rate of 26 and an oxygen saturation of 96% on 1 L nasal cannula. Patient's laboratory evaluation was notable for a troponin of 0.2. 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 Non-ST elevation UT, present on admission, active -Patient would not like any invasive procedures including coronary angiography. This was clarified with the patient and the patient's son today. -Patient would however like medical management. -Patient was initiated on a heparin drip down in the emergency department which was continued for ~36 hours prior to discharge -Trended troponins which remained evelated but not upward trending - Echocardiogram demonstrated no acute changes from previous, no wall motion abnormalities. -Telemetry monitoring demonstrated stable rhythm -Continued statin. - Will initiate Aspirin therpay on discharge in setting of possible post-acute NSTEMI, may be continued at PCP discretion Acute on chronic hypoxemic hypercarbic respiratory failure secondary to COPD exacerbation, present on admission, active -She was given loading dose of steroids in the ED. Will continue with 60 mg of prednisone daily -Vital respiratory PCR negative for evidence of viral infection -Sputum culture negative for growth at time of dischar -Azithromycin for 5 day course, pt on day 2/5 on discharge. 3 additional tabs provided. - Discharged on home medications in addition to 5 day steroid burst, also day 2/ 5 on DC. Continue Prednisone 60mg pO daily, then return to 20mg PO daily which was patient home dosage prior to admission. -Continue home steroid inhaler -Hospice consultation is still pending, will be rescheduled for home visit. Chronic issues, present on admission, stable: AAA -Monitor clinically - No planned interventions Tobacco use -Continue nicotine patches Hyperlipidemia -Continue statin Exam Vital Signs (Last) Date Time Temp Pulse Resp B/P Pulse Ox O2 Delivery O2 Flow Rate FiO2 12/12/16 11:02 79 20 95 Nasal Cannula 2.00 12/12/16 05:49 36.5 107/65 Exam General: Alert, Oriented X3, Cooperative Mouth: Mucous Membranes Moist/[place] Chest & Lungs: Diffuse inspiratory and expiratory wheezing, no consolidation are diminished airflow in the remaining lung bhatt. Coarse breath sounds diffusely. Abdomen: Non-tender, Non-distended Extremities: No cyanosis/clubbing/edema bilat Neurological: Grossly Neurologically Intact Test 12/10/16 14:33 12/11/16 05:37 12/12/16 05:15 Total Bilirubin 0.3mg/dL (0.0-1.2) Aspartate Amino Transf (AST/SGOT) 21U/L (0-50) Alanine Aminotransferase (ALT/SGPT) 14U/L (0-32) Alkaline Phosphatase 59U/L (25-165) Pro-B-Type Natriuretic Peptide 2445pg/mL (0-738) Total Protein 6.8g/dL (6.4-8.4) Albumin 3.9g/dL (3.4-5.0) Troponin T 0.141ug/L (0.0-0.011) White Blood Count 10.3th/mm3 (3.8-10.1) Red Blood Count 3.78mil/mm3 (3.90-5.20) Hemoglobin 11.3g/dL (12.0-15.6) Hematocrit 38.8% (35.0-46.0) Mean Corpuscular Volume 102.6fL (81-100) Mean Corpuscular Hemoglobin 29.9pg (27.0-35.0) Mean Corpuscular Hemoglobin Concent 29.1% (32.0-37.0) Red Cell Distribution Width 16.6% (12.3-15.4) Platelet Count 229bil/L (150-400) Neutrophils (%) (Auto) 69.3% (40-74) Lymphocytes (%) (Auto) 21.0% (14-46) Monocytes (%) (Auto) 9.3% (4-12) Eosinophils (%) (Auto) 0.1% (0-5) Basophils (%) (Auto) 0.1% (0-3) Activated Partial Thromboplast Time 69.6sec (22.8-33.0) Sodium Level 142mEq/L (134-144) Potassium Level 4.2mEq/L (3.5-5.2) Chloride Level 100mEq/L (97-108) Carbon Dioxide Level 31mmol/L (18-29) Blood Urea Nitrogen 19mg/dL (8-27) Creatinine 0.41mg/dL (0.57-1.00) Estimat Glomerular Filtration Rate 216mL/min (>59) Glucose Level 76mg/dL (60-99) Calcium Level 8.3mg/dL (8.5-10.1) Discharge Medications Discharge Medications Azithromycin (Zithromax) 250 Mg Tablet 250 MG PO DAILY Prescribed by: ANAID KONG DO Lisinopril (Lisinopril) 10 Mg Tablet 10 MG PO QAM (Reported) Lovastatin (Lovastatin) 20 Mg Tablet 20 MG PO HS (Reported) Nicotine 21 mg/24 hr Patch (Nicotine 21 mg/24 hr Patch) 1 Each Patch.dysq 1 PATCH TRANSDERM DAILY (Reported) Omeprazole (Omeprazole) 20 Mg Capsule.dr 20 MG PO QAM (Reported) Prednisone (Deltasone) 20 Mg Tablet 40 MG PO DAILY Prescribed by: ANAID KONG DO Ranitidine (Ranitidine) 150 Mg Capsule 150 MG PO BIDWM (Reported) Umeclidinium Brm/Vilanterol Tr (Anoro Ellipta 62.5-25 Mcg INH) 1 Each Disk.w.dev 1 EACH IH DAILY Prescribed by: JAMIR HUSSEIN DO As needed Zolpidem (Zolpidem) 5 Mg Tablet 5 MG PO HS PRN PRN For Insomnia (Reported) Followup Plan Disposition: Home with family Follow-up plan Continue increased dosage of Steroid (Prednisone 60mg) for 3 addition days before restarting lower dosage of 20mg daily after Also, you were started on aspirin 81mg daily, due to concern for heart disease. You should discuss continuing this medication with your primary care doctor on follow up. Discharge Diet: No restrictions Discharge Activity: No restrictions Follow-up Provider: Felix Knott MD Follow-up with PCP in: 1 week Time spent 40 minutes copies to: Felix Knott MD, Benjamin P DO Dec 12, 2016 12:40
[2016-12-12] MEDS ORDERED: ASPI-973 PO (13:04)
[2016-12-12] MEDS ORDERED: ZIT250 PO (13:04)
[2016-12-12] MEDS ORDERED: PRED-508 PO (13:04)
--- NOTE | 2016-12-12 14:03 | NUR ---
Social Work: Initial Assessment / Multidisciplinary Rounds / Discharge Data: Pt is a 76 y/o female admitted for N Stemi, COPD. Pt's PCP is Dr Knott, pt's insurance is Medicare with [employer] supp. EMR reviewed. Readmit score is 5, high. CORPORATE SECURITY MANAGER met with pt at bedside, role explained. Pt states that she lives with her son in [place] where she uses a wheel chair in a 3 story home, she remains on first floor. Pt does not drive, has no hx of HH or SNF, no LTC or VA benefits. Pt is not a caregiver. Pt's son Axel helps pt at home, they are interested in private pay caregiving options, CORPORATE SECURITY MANAGER supplied them with [employer]. Pt has O2 at baseline at home through [employer]. Pt's son will drive home at d/c. Pt and son notified CORPORATE SECURITY MANAGER that if MD discharges them today that they will contest the d/c. D/C orders are in. CORPORATE SECURITY MANAGER notified UR RN that pt will appeal the d/c likely. CORPORATE SECURITY MANAGER will continue to follow. Assessment: Pt with caregiving at baseline. Plan: Pt will d/c home via POV when medically stable, likely appealing their d/c today. CORPORATE SECURITY MANAGER will continue to follow. LACEY Aguilar Addendum: 12/12/16 at 1407 by JOSÉ MOJICA Amended: Links added.
--- NOTE | 2016-12-12 16:14 | NUR ---
O2 Pt alert and oriented. Cooperative with care. On 1.5L Oxymask as she is a mouth breather. No signs of respiratory distress. O2 sats 89% on spot check this afternoon. Scheduled and PRN nebs. No reports of pain. Family at bedside. Care ongoing.
[2016-12-13 04:30] VITALS: BP 106/69; PULSE 72; RESP 24; O2SAT 93
--- NOTE | 2016-12-13 04:44 | NUR ---
NOC Pt has been alert and oriented. Cooperative with care. Denies chest pain. SOB with exertion and at rest. Currently on Oxymask 2LPM saturating 89-90%. Pt aware of possible DC in am. Hourly rounding in effect.
[2016-12-13 07:28] VITALS: PULSE 80; RESP 18; O2SAT 92
[2016-12-13] MEDS: Albuterol-Ipratropium 3 mL Inhalation Solution NEB SCH ×2 (07:28→11:22)
[2016-12-13] MEDS: predniSONE 20 mg Tablet PO SCH (07:51)
[2016-12-13 11:22] VITALS: PULSE 82; RESP 20; O2SAT 92
--- NOTE | 2016-12-13 12:14 | PCM.DIMED ---
Discharge Instructions Date of Service Dec 13, 2016 Dates of Hospitalization Dec 10, 2016 at 16:45 Discharge Diagnosis Discharge Diagnosis Non-ST elevation DE, present on admission, active Acute on chronic hypoxemic hypercarbic respiratory failure secondary to COPD exacerbation, present on admission, active AAA Tobacco use Hyperlipidemia Diet Discharge Diet: No restrictions Activity Discharge Activity: No restrictions Patient Instructions Follow-up plan Continue increased dosage of Steroid (Prednisone 60mg) for 3 addition days before restarting lower dosage of 20mg daily after Also, you were started on aspirin 81mg daily, due to concern for heart disease. You should discuss continuing this medication with your primary care doctor on follow up. Follow-up Provider: Felix Knott MD Follow-up with PCP in: 1 week Rashad Bone DO Dec 13, 2016 12:14
[2016-12-13 13:47] VITALS: BP 96/60; PULSE 83; RESP 22
--- NOTE | 2016-12-13 14:49 | NUR ---
Social Work: Discharge Data: Pt is on day 3 of hospitalization. EMR reviewed. D/C orders are in. MITER SAWYER acknowledges order for [facility], RN, JESS. MITER SAWYER met with pt and son at bedside, explained HH. Gave HH choice list. Pt and son state [facility] is their preference. MITER SAWYER left a voice mail with [facility] requested review of pt to see if they can accept. Access given. MITER SAWYER will continue to follow. Assessment: Pt with caregiving from son at baseline, no fully capable so self care at this time, near baseline. Plan: Pt will d/c home via POV today with son with [facility] RN, JESS. MITER SAWYER will fax F2F once completes this. MITER SAWYER will continue to follow. LACEY gAuilar
--- NOTE | 2016-12-13 16:32 | NUR ---
Discharge Patient departed unit via wheelchair, accompanied by staff and family. Patient Alert and oriented x 3 at time of departure. Patient using portable O2/2 lt via nasal cannula (patient at baseline). Patient denies pain, shortness of breath (at rest), chest pressure, nausea. Patient reporting improved ability to breath since admission. Discharge instructions/medications reviewed with patient/family prior to discharge. All questions addressed. Patient belongings, discharge instructions and prescriptions in hand.
== END 2016-12-13 16:29 | disposition home or self-care (01) | DRG 280 ==
LOC: SED 14:00 → MPC 16:45
PROVIDERS: ADMIT Family Medicine; ATTEND Family Medicine
DX: I21.4 Non-ST elevation (NSTEMI) myocardial infarction (principal); J96.21 Acute and chronic respiratory failure with hypoxia; J96.22 Acute and chronic respiratory failure with hypercapnia; J44.1 Chronic obstructive pulmonary disease with (acute) exacerbation; Z99.81 Dependence on supplemental oxygen; Z79.52 Long term (current) use of systemic steroids; F17.210 Nicotine dependence, cigarettes, uncomplicated; E78.5 Hyperlipidemia, unspecified; Z66 Do not resuscitate